=== PATIENT | female | born 2000 | race African-American/Black ===

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

== ENCOUNTER 2019-01-12 21:23 | Emergency (ER) | payer OTHER ==
[2019-01-12 21:39] VITALS: BP 108/50; PULSE 78; TEMP 97.8; BMI 30.9
--- NOTE | 2019-01-12 23:52 | PDOC ---
History of Present Illness - General Chief Complaint: Pain Stated Complaint: lower back pain Time Seen by Provider: 01/12/19 23:41 - History of Present Illness Initial Comments: 01/12/19 23:50 The patient is a 18 year old female with no reported significant PMH who presents to the ED with a 4 day h/o a constellation of complaints including B/L lower quadrant abdominal pain, flank pain and B/L LE swelling. No fevers/ chills. Endorses increased urgency and frequency but denies dysuria/hematuria. NKDA Past History - Past Medical History Allergies/Adverse Reactions: Allergies Allergy/AdvReac Type Severity Reaction Status Date / Time No Known Allergies Allergy Verified 01/12/19 21:36 Home Medications: Ambulatory Orders Amoxicillin - [Amoxicillin 500mg Capsule -] 500 mg PO BID #20 capsule 10/23/18 Cancer: No Cardiac Disorders: No CVA: No COPD: No CHF: No DVT: No GI Disorders: Yes (GERD) Disorders: Yes (ovarian cyst, UTIs (usually doesnt complete abx)) - Surgical History Cholecystectomy: Yes - Immunization History Immunization Up to Date: Yes - Suicide/Smoking/Psychosocial Hx Smoking Status: No Smoking History: Never smoked Have you smoked in the past 12 months: No Number of Cigarettes Smoked Daily: 0 Hx Alcohol Use: No Drug/Substance Use Hx: No Substance Use Type: None Review of Systems - Review of Systems Constitutional: No: Chills, Fever HEENTM: No: Blurred Vision, Recent change in vision Respiratory: No: Cough, Shortness of Breath Cardiac (ROS): No: Chest Pain, Lightheadedness, Palpitations, Syncope ABD/GI: Yes: Abdominal cramping. No: Constipated, Diarrhea, Nausea, Vomiting : Yes: Frequency, Urgency. No: Burning, Dysuria Musculoskeletal: Yes: Back Pain *Physical Exam - Vital Signs Last Vital Signs Temp Pulse Resp BP Pulse Ox 97.8 F 78 18 108/50 L 100 01/12/19 21:37 01/12/19 21:37 01/12/19 21:37 01/12/19 21:37 01/12/19 21:37 - Physical Exam General Appearance: Yes: Nourished, Appropriately Dressed HEENT: positive: Normal Voice, Hearing Grossly Normal Neck: positive: Trachea midline, Supple Respiratory/Chest: positive: Lungs Clear, Normal Breath Sounds Cardiovascular: positive: S1, S2, Edema (mild B/L non-pitting edema) Vascular Pulses: Dorsalis-Pedis (R): 2+, Doralis-Pedis (L): 0 Gastrointestinal/Abdominal: positive: Normal Bowel Sounds, Soft Musculoskeletal: positive: CVA Tenderness (R), CVA Tenderness (L) Extremity: positive: Normal Capillary Refill, Normal Inspection Integumentary: positive: Normal Color, Dry, Warm Neurologic: positive: member of congress II-XII NML intact, Fully Oriented, Alert Medical Decision Making - Medical Decision Making 01/12/19 23:52 18 year old female c/o back pain, abdominal pain and B/L LE swelling. VS unremarkable. PE shows mild non-pitting edema in B/L LE, soft belly, mild B/ L CVA tenderness. Patient states she doesn't wish to stay for evaluation after she is counseled it may take a 2-3 hours for labs, UA, renal ultrasound. Discharged AMA. The patient is clinically sober, free from distracting injury, appears to have intact insight and judgement and in my opinion has the capacity to make decisions. The patient presents with signs and symptoms consistent with possible renal or urinary or cardiac etiology. I have discussed the need for further evaluation of her condition. She has requested discharge and understands she is signing out against medical advice. Patient states she will follow up with primary care and I have counseled patient to return to the Emergency Department for any new/worsening/concerning symptoms. *DC/Admit/Observation/Transfer Diagnosis at time of Disposition: Back pain, Abdominal pain, Localized swelling of both lower legs - Discharge Dispostion Disposition: AGAINST MEDICAL ADVICE Condition at time of disposition: Fair Decision to Admit order: No - Referrals Referrals: Shawn Johnson MD [Primary Care Provider] - - Patient Instructions Printed Discharge Instructions: DI for Low Back Pain, DI for Abdominal Pain- Adult Additional Instructions: You are choosing to leave against medical advice. Follow up with your primary care doctor in the next 2 days. Return to the Emergency Department for full evaluation or any new/worsening/ concerning symptoms. - Post Discharge Activity
--- NOTE | 2019-01-13 02:45 | PDOC ---
Documentation entered by Linda Zendejas SCRIBE, acting as scribe for Lucrecia Nation MD. Lucrecia Nation MD: This documentation has been prepared by the Cristiana eli Daisy, SCRIBE, under my direction and personally reviewed by me in its entirety. I confirm that the documentation accurately reflects all work, treatment, procedures, and medical decision making performed by me. Attending Attestation - Resident Resident Name: Ayala Stewart - ED Attending Attestation I have performed the following: I have examined & evaluated the patient, The case was reviewed & discussed with the resident, I agree w/resident's findings & plan - HPI HPI: 01/12/19 23:59 18 yo female p/w b/l lower extremity edema, abdominal pain and flank pain - Physicial Exam PE: 01/13/19 02:42 wnwd 18 yo female has cluster of complaints head ncat neck supple lungs cta b/l cvs [id number] abd flat,nontender skin warm and tam extremities there is mild b/l edema mild low back pain neuro axox3,ambulatory,no gross focal neuro deficits psych appropriate - Medical Decision Making 01/13/19 02:44 pt refused to stay for imaging studies or lab work and left AMA
== END 2019-01-13 00:01 | disposition left against medical advice (07) ==
LOC: JERFT 21:23 → JER 21:23
DX: R10.32 Left lower quadrant pain (principal); D64.9 Anemia, unspecified
CPT/HCPCS: 99282-25

== ENCOUNTER 2019-01-13 15:24 | Emergency (ER) | payer OTHER ==
--- NOTE | 2019-01-13 15:34 | PDOC ---
Rapid Medical Evaluation Time Seen by Provider: 01/13/19 15:33 Medical Evaluation: Allergies Allergy/AdvReac Type Severity Reaction Status Date / Time No Known Allergies Allergy Verified 01/12/19 21:36 01/13/19 15:36 I have performed a brief in-person evaluation of this patient. The patient presents with a chief complaint of: lower back pain, foot edema Pertinent physical exam findings:stable and in NAD, non-focal I have ordered the following:labs, std screening see yesterdays note. pt left ama yesterday prior to labs, us The patient will proceed to the ED for further evaluation. 01/13/19 15:41
[2019-01-13 15:37] VITALS: BP 119/80; PULSE 78; TEMP 98.5; BMI 30.9
--- NOTE | 2019-01-13 16:55 | PDOC ---
History of Present Illness - General Chief Complaint: Back Pain Stated Complaint: LOWER BACK PAIN, SWELLING OF FEET Time Seen by Provider: 01/13/19 15:33 History Source: Patient - History of Present Illness Timing/Duration: reports: intermittent Abdominal Pain Onset Location: reports: suprapubic Pain Radiation: reports: back Past History - Past Medical History Allergies/Adverse Reactions: Allergies Allergy/AdvReac Type Severity Reaction Status Date / Time No Known Allergies Allergy Verified 01/13/19 15:37 Home Medications: Ambulatory Orders NK [No Known Home Medication] 01/13/19 Cancer: No Cardiac Disorders: No CVA: No COPD: No CHF: No DVT: No GI Disorders: Yes (GERD) Disorders: Yes (ovarian cyst, UTIs (usually doesnt complete abx)) - Surgical History Cholecystectomy: Yes - Immunization History Immunization Up to Date: Yes - Suicide/Smoking/Psychosocial Hx Smoking Status: No Smoking History: Never smoked Have you smoked in the past 12 months: No Number of Cigarettes Smoked Daily: 0 Information on smoking cessation initiated: No Hx Alcohol Use: No Drug/Substance Use Hx: No Substance Use Type: None Review of Systems - Review of Systems Constitutional: No: Chills, Fever ABD/GI: Yes: Constipated. No: Blood Streaked Bowels, Diarrhea, Nausea, Rectal Bleeding, Vomiting, Tarry Stools : No: Burning, Dysuria, Discharge, Hematuria *Physical Exam - Vital Signs Last Vital Signs Temp Pulse Resp BP Pulse Ox 98.5 F 78 17 119/80 100 01/13/19 15:35 01/13/19 15:35 01/13/19 15:35 01/13/19 15:35 01/13/19 15:35 - Physical Exam General Appearance: Yes: Appropriately Dressed. No: Apparent Distress HEENT: positive: Normal Voice Neck: positive: Supple Respiratory/Chest: negative: Respiratory Distress Gastrointestinal/Abdominal: positive: Normal Bowel Sounds, Soft. negative: Tender, Distended, Guarding, Rebound Musculoskeletal: negative: CVA Tenderness Integumentary: positive: Dry, Warm Neurologic: positive: Fully Oriented, Alert, Normal Mood/Affect ED Treatment Course - LABORATORY CBC & Chemistry Diagram: 01/13/19 18:34 01/13/19 17:51 Medical Decision Making - Medical Decision Making 01/13/19 16:39 18 yo F, tx for chlamydia remotely, here for evaluation of abd pain. Patient states for the past week she's been experiencing tingling to left lower abdomen , then sharp pain that comes and goes. No pain currently in ED. Pt denies dyspareunia, dysuria, hematuria, vaginal discharge, change in BM, n/v/f/c. No h/ o cysts or fibroids. No new sexual partners. Of note, pt presented to ED yesterday for symptoms, but left prior to workup because "it was taking too long " per patient See exam Lower abd pain x 1 week Since resolved No associated sxs Stable w/ benign abdomen AMA yesterday prior to w/u -labs/UA/US -anticipate discharge 01/13/19 18:45 US, UA and upreg neg. Pending labs and dispo. Remains pain free at this time. Signed out to LORNA Pan at this time 01/13/19 19:10 01/13/19 22:34 *DC/Admit/Observation/Transfer Diagnosis at time of Disposition: Abdominal pain - Discharge Dispostion Disposition: HOME Condition at time of disposition: Stable - Referrals Referrals: Shawn Johnson MD [Primary Care Provider] - 2 Days - Patient Instructions Printed Discharge Instructions: DI for Abdominal Pain-Adult - Post Discharge Activity
[2019-01-13 17:29] LABS: PH,URINE >= 9.0 (5.0-8.0); URINE APPEARANCE CLEAR; URINE BILIRUBIN NEGATIVE (NEGATIVE); URINE COLOR YELLOW; URINE GLUCOSE (UA) NEGATIVE (NEGATIVE); URINE KETONE NEGATIVE (NEGATIVE); URINE LEUK ESTERASE NEGATIVE (NEGATIVE); URINE NITRITE NEGATIVE (NEGATIVE); URINE PROTEIN NEGATIVE (NEGATIVE)
[2019-01-13 18:35] LABS: ALBUMIN 3.9 g/dl (3.4-5.0); BILIRUBIN,TOTAL 0.5 mg/dL (0.2-1); CALCIUM 8.8 mg/dL (8.5-10.1); CREATININE 0.8 mg/dL (0.55-1.3); POTASSIUM 4.3 mmol/L (3.5-5.1)
[2019-01-13 18:56] LABS: BASO % 0.4 % (0-2.0); EOS % 1.7 % (0-4.5); HEMATOCRIT 30.3 % (32.4-45.2); HEMOGLOBIN 9.5 GM/dL (10.7-15.3); LYMPH % 31.4 % (8-40); MCH 23.8 pg (25.7-33.7); MCHC 31.5 g/dl (32.0-36.0); MEAN CELL VOLUME 75.5 fl (80-96); MEAN PLT VOLUME 8.6 fl (7.5-11.1); MONO % 9.3 % (3.8-10.2); NEUT % 57.2 % (42.8-82.8); PLATELET COUNT 302 K/MM3 (134-434); RBC 4.01 M/mm3 (3.60-5.2); RDW 16.2 % (11.6-15.6); WHITE BLOOD COUNT 6.1 K/mm3 (4.0-10.0)
--- NOTE | 2019-01-13 19:34 | PDOC ---
*Physical Exam - Vital Signs Last Vital Signs Temp Pulse Resp BP Pulse Ox 98.5 F 78 17 119/80 100 01/13/19 15:35 01/13/19 15:35 01/13/19 15:35 01/13/19 15:35 01/13/19 15:35 ED Treatment Course - LABORATORY CBC & Chemistry Diagram: 01/13/19 18:34 01/13/19 17:51 - ADDITIONAL ORDERS Additional order review: Laboratory Results 01/13/19 01/13/19 01/13/19 17:51 17:12 17:12 Sodium 137 Potassium 4.3 Chloride 105 Carbon Dioxide 27 Anion Gap 5 L BUN 11 Creatinine 0.8 Est GFR (CKD-EPI)AfAm 123.87 Est GFR (CKD-EPI)NonAf 106.88 Random Glucose 114 H Calcium 8.8 Total Bilirubin 0.5 AST 16 ALT 23 Alkaline Phosphatase 92 Total Protein 8.0 Albumin 3.9 Urine Color Yellow Urine Appearance Clear Urine pH >= 9.0 H D Ur Specific [place] 1.021 Urine Protein Negative Urine Glucose (UA) Negative Urine Ketones Negative Urine Blood Negative Urine Nitrite Negative Urine Bilirubin Negative Urine Urobilinogen 1.0 Ur Leukocyte Esterase Negative Urine HCG, Qual Negative 01/13/19 18:34 RBC 4.01 MCV 75.5 L MCHC 31.5 L RDW 16.2 H MPV 8.6 Neutrophils % 57.2 D Lymphocytes % 31.4 D Monocytes % 9.3 Eosinophils % 1.7 D Basophils % 0.4 Medical Decision Making - Medical Decision Making Patient signed out to me by LORNA Cowart Patient appears well and is in NAD; denies any pain CBC was pending which came back showing anemia, which patient states she is already she has (Hgb is stable on trending from prior labs) Stable for dc 01/13/19 19:33 *DC/Admit/Observation/Transfer Diagnosis at time of Disposition: Abdominal pain Qualifiers: Abdominal location: left lower quadrant Qualified Code(s): R10.32 - Left lower quadrant pain - Discharge Dispostion Disposition: HOME Condition at time of disposition: Stable Decision to Admit order: No - Referrals Referrals: Shawn Johnson MD [Primary Care Provider] - 2 Days - Patient Instructions Printed Discharge Instructions: DI for Abdominal Pain-Adult - Post Discharge Activity
== END 2019-01-13 20:05 | disposition home or self-care (01) ==
LOC: JER 15:24
DX: R10.32 Left lower quadrant pain (principal); R22.43 Localized swelling, mass and lump, lower limb, bilateral
CPT/HCPCS: 36415; 76830-TC; 76856-TC; 80053; 81003; 84703; 85025; 87086; 87491; 87591; 99282-25

== ENCOUNTER 2019-04-20 00:18 | Emergency (ER) | payer OTHER ==
--- NOTE | 2019-04-20 00:31 | PDOC ---
History of Present Illness - General Stated Complaint: YEAST INFECTION Time Seen by Provider: 04/20/19 00:31 - History of Present Illness Initial Comments: 04/20/19 00:45 19 year old woman with no pmhx who presents with yeast infection after completing a course of cipro for UTI. She reports that she got diflucan this morning at [facility] but still has vaginal itching. She had recent negative STD test. She denies any fever, dysuria, hematuria. She has no other complaints. ROS GENERAL/CONSTITUTIONAL: No fever or chills. No weakness. HEAD, EYES, EARS, NOSE AND THROAT: No change in vision. No ear pain or discharge. No sore throat. CARDIOVASCULAR: No chest pain or shortness of breath RESPIRATORY: No cough, wheezing, or hemoptysis. GASTROINTESTINAL: No nausea, vomiting, diarrhea or constipation. GENITOURINARY: No dysuria, frequency, or change in urination. MUSCULOSKELETAL: No joint or muscle swelling or pain. No neck or back pain. SKIN: No rash NEUROLOGIC: No headache, vertigo, loss of consciousness, or change in strength/ sensation. PE GENERAL: Awake, alert, and fully oriented, in no acute distress HEAD: No signs of trauma, normocephalic, atraumatic EYES: EOMI, sclera anicteric, conjunctiva clear ENT: oropharynx clear without exudates. Moist mucosa NECK: Normal ROM, supple LUNGS: No distress, speaks full sentences, clear to auscultation bilaterally HEART: Regular rate and rhythm, normal S1 and S2, no murmurs, rubs or gallops, peripheral pulses normal and equal bilaterally. ABDOMEN: Soft, nontender, normoactive bowel sounds. No guarding, no rebound. No masses EXTREMITIES : Normal inspection, Normal range of motion, no edema. No clubbing or cyanosis. NEUROLOGICAL: Cranial nerves II through XII grossly intact. Normal speech, normal gait, no focal sensorimotor deficits SKIN: Warm, Dry, normal turgor, no rashes or lesions noted MDM 19 year old woman with no pmhx who presents with yeast infection after completing a course of cipro for UTI. DDX including but not limited to: yeast infection ED Course: Patient education provided will give topical clotrimazole otherwise advise to chicken picker OTC. Melanie Smith, PGY2 Emergency Medicine Past History - Past Medical History Allergies/Adverse Reactions: Allergies Allergy/AdvReac Type Severity Reaction Status Date / Time No Known Allergies Allergy Verified 04/20/19 01:09 Home Medications: Ambulatory Orders NK [No Known Home Medication] 01/13/19 Cancer: No Cardiac Disorders: No CVA: No COPD: No CHF: No DVT: No GI Disorders: Yes (GERD) Disorders: Yes (ovarian cyst, UTIs (usually doesnt complete abx)) - Surgical History Cholecystectomy: Yes - Immunization History Immunization Up to Date: Yes - Suicide/Smoking/Psychosocial Hx Smoking Status: No Smoking History: Never smoked Have you smoked in the past 12 months: No Number of Cigarettes Smoked Daily: 0 Hx Alcohol Use: No Drug/Substance Use Hx: No Substance Use Type: None *DC/Admit/Observation/Transfer Diagnosis at time of Disposition: Yeast infection - Discharge Dispostion Disposition: HOME Condition at time of disposition: Stable Decision to Admit order: No - Referrals - Patient Instructions Printed Discharge Instructions: DI for Vaginal Yeast Infection Additional Instructions: You were seen in the ED for yeast infection. You already have taken Diflucan. supervisor lamp shades over the counter clotrimazole cream. Please return to the ED if you experience any fevers, skin abscess or swelling, burning with urination or blood in the urine. - Post Discharge Activity
[2019-04-20] MEDS ORDERED: FLUCONAZOLE 100 MG TABLET (UD) PO ONE (00:33)
[2019-04-20] MEDS ORDERED: CLOTRIMAZOLE 1% CREAM 15 GM TUBE TP SCH (01:00)
[2019-04-20 01:18] VITALS: TEMP 98.4; BMI 32.2
--- NOTE | 2019-04-20 01:38 | PDOC ---
Attending Attestation - Resident Resident Name: Melanie Smith - ED Attending Attestation I have performed the following: I have examined & evaluated the patient, The case was reviewed & discussed with the resident, I agree w/resident's findings & plan - HPI HPI: 04/20/19 06:36 Pt comes with a yeast infection. - Physicial Exam PE: 04/20/19 06:36 Agree with resident exam - Medical Decision Making 04/20/19 06:36 Home with a dose of diflucan. Pt advised to follow with INSURANCE AGENT
[2019-04-20 03:02] VITALS: BP 127/69; PULSE 74
== END 2019-04-20 01:30 | disposition home or self-care (01) ==
LOC: JER 00:18
DX: B37.3 Candidiasis of vulva and vagina (principal)
CPT/HCPCS: 99282-25

== ENCOUNTER 2019-04-27 15:01 | Emergency (ER) | payer OTHER ==
--- NOTE | 2019-04-27 15:05 | PDOC ---
Rapid Medical Evaluation Time Seen by Provider: 04/27/19 15:03 Medical Evaluation: Allergies Allergy/AdvReac Type Severity Reaction Status Date / Time No Known Allergies Allergy Verified 04/20/19 01:09 04/27/19 15:03 HPI: No concern for STD but has vaginal itching after [place] wax 2 weeks ago PE: deferred no gross deficits ORDERS: Nothing Discharge Disposition - Diagnosis Itching in the vaginal area - Discharge Dispostion Condition at time of disposition: Stable - Referrals - Patient Instructions - Post Discharge Activity
[2019-04-27 15:07] VITALS: BP 116/69; PULSE 93; TEMP 98.6; BMI 32.4
--- NOTE | 2019-04-27 15:39 | PDOC ---
History of Present Illness - General Chief Complaint: Vaginal Sxs Stated Complaint: VAGINAL ITCHING Time Seen by Provider: 04/27/19 15:03 History Source: Patient - History of Present Illness Initial Comments: 04/27/19 15:49 Chief complaint: Vaginal itching Patient is a healthy 19-year-old female that episode he and wax done to her vaginal area about 2-3 weeks ago, she was burn to the area,. Patient previously had UTI and yeast infection, was on Diflucan because she gets yeast infections when she takes antibiotics. Patient states that she was seen here 3 days ago, given clometrazole and which is not helping. Patient has no fever, patient was recently screened for STDs, 3 weeks ago by her ARMORED TRUCK DRIVER. She has not had sex since. Patient states that the area is getting better but it is still very itchy and irritated GENERAL/CONSTITUTIONAL: No fever, weakness. dizziness HEAD, EYES, EARS, NOSE AND THROAT: No change in vision. No ear pain or discharge. No sore throat. CARDIOVASCULAR: No chest pain RESPIRATORY: No shortness of breath or cough GASTROINTESTINAL: No pain, nausea, vomiting, diarrhea or constipation GENITOURINARY: No dysuria MUSCULOSKELETAL: No neck or back pain SKIN: + Irritated vaginal area NEUROLOGIC: No headache, vertigo, loss of consciousness, or loss of sensation. GENERAL: The patient is awake, alert, and fully oriented, in no acute distress. HEAD: Normal with no signs of trauma. EYES: Pupils equal, round and reactive to light, sclera anicteric, conjunctiva clear. ENT: pharynx: no erythema, no exudate, uvula midline NECK: supple CHEST: clear, nontender, rr ABD: soft, nontender Genitals: External exam with small skin bumps, noninfected, mild erythema, irritation, no signs of cellulitis or infection. Pelvic: Small amount of white discharge, no tenderness BACK: no tenderness or signs of injury EXTREMITIES: Normal range of motion, no edema. NEUROLOGICAL: Normal speech, normal gait. SKIN: Warm, Dry Past History - Past Medical History Allergies/Adverse Reactions: Allergies Allergy/AdvReac Type Severity Reaction Status Date / Time No Known Allergies Allergy Verified 04/20/19 01:09 Home Medications: Ambulatory Orders Fluconazole [Diflucan] 150 mg PO ONCE #1 tablet 04/27/19 Cancer: No Cardiac Disorders: No CVA: No COPD: No CHF: No DVT: No GI Disorders: Yes (GERD) Disorders: Yes (ovarian cyst, UTIs (usually doesnt complete abx)) - Surgical History Cholecystectomy: Yes - Immunization History Immunization Up to Date: Yes - Suicide/Smoking/Psychosocial Hx Smoking Status: No Smoking History: Never smoked Have you smoked in the past 12 months: No Number of Cigarettes Smoked Daily: 0 Hx Alcohol Use: No Drug/Substance Use Hx: No Substance Use Type: None *Physical Exam - Vital Signs Last Vital Signs Temp Pulse Resp BP Pulse Ox 98.6 F 93 H 18 116/69 99 04/27/19 15:05 04/27/19 15:05 04/27/19 15:05 04/27/19 15:05 04/27/19 15:05 Medical Decision Making - Medical Decision Making 04/27/19 15:54 Healthy 19-year-old female who after having Ethiopian wax done several weeks ago feels the area was burned, and developed itching. She states it is better than it was before but continues to be swollen and irritated and itchy. Patient prone to yeast infections and found to have some white discharge, will give Diflucan. There is no signs of cellulitis/infection. Patient has not been sexually active in the last few weeks, and was just prior checked by her OB/ IP TECHNOLOGY TRANSACTIONS ATTORNEY. Patient was instructed to take cool baths, apply bacitracin and over-the- counter cortisone. She was also instructed she can take Benadryl for the itching especially at bedtime. She will follow-up with her ARMORED TRUCK DRIVER this week it was further recommended to her that she should probably not get this procedure done in the future Discussed issues, findings, results, applicable medications and treatments and follow-up. All these were understood and all questions were answered *DC/Admit/Observation/Transfer Diagnosis at time of Disposition: Itching in the vaginal area - Discharge Dispostion Disposition: HOME Condition at time of disposition: Stable - Prescriptions Prescriptions: Fluconazole [Diflucan] 150 mg PO ONCE #1 tablet - Referrals - Patient Instructions Additional Instructions: Area clean and dry, do not use any kind of perfumes or ointments or creams, Apply the bacitracin and a cortisone 2-3 times daily after cool soaks, wear loose cotton underwear. Take the Diflucan, follow-up with your distribution designer, call tomorrow also take Benadryl for the itching, especially at nighttime to sleep Return to the ER if fever or feeling sicker - Post Discharge Activity
== END 2019-04-27 15:39 | disposition home or self-care (01) ==
LOC: JERFT 15:01
DX: L29.2 Pruritus vulvae (principal)
CPT/HCPCS: 99282-25

== ENCOUNTER 2019-05-01 21:44 | Emergency (ER) | payer OTHER ==
--- NOTE | 2019-05-01 21:53 | PDOC ---
Rapid Medical Evaluation Time Seen by Provider: 05/01/19 21:50 Medical Evaluation: Allergies Allergy/AdvReac Type Severity Reaction Status Date / Time No Known Allergies Allergy Verified 04/20/19 01:09 05/01/19 21:51 I have performed a brief in-person evaluation of this patient. The patient presents with a chief complaint of: ROSS w/ back and abd pain. H/o anemia, told hgb 8, 2 weeks ago, non-compliant w/ iron. No blood transfusion in past. Denies weakness/dizziness/sob/syncope Pertinent physical exam findings: Tachy to 118 w/ T of 101.8, in NAD I have ordered the following:labs The patient will proceed to the ED for further evaluation. Discharge Disposition - Diagnosis Headache Qualifiers: Headache type: unspecified Headache chronicity pattern: acute headache Intractability: not intractable Qualified Code(s): R51 - Headache Abdominal pain Qualifiers: Abdominal location: lower abdomen, unspecified Qualified Code(s): R10.30 - Lower abdominal pain, unspecified Back pain Qualifiers: Back pain location: low back pain Chronicity: acute Back pain laterality: bilateral Sciatica presence: without sciatica Qualified Code(s): M54.5 - Low back pain - Referrals - Patient Instructions - Post Discharge Activity
[2019-05-01 22:06] VITALS: BMI 30.9
[2019-05-01] MEDS ORDERED: METOCLOPRAMIDE HCL INJECTION 10 MG/2 ML VIAL IVPUSH ONE (23:31)
[2019-05-01] MEDS ORDERED: SODIUM CHLORIDE 1,000 ML IV STA (23:32)
[2019-05-01] MEDS ORDERED: ACETAMINOPHEN 1000 MG/100 ML VIAL (NON FORMULARY) IVPB ONE (23:32)
[2019-05-01] MEDS ORDERED: METOCLOPRAMIDE HCL INJECTION 10 MG/2 ML VIAL ONE (23:58)
[2019-05-01] MEDS ORDERED: ACETAMINOPHEN INJECTION 100 ML IVPB ONE (23:58)
--- NOTE | 2019-05-02 00:35 | PDOC ---
History of Present Illness - General Chief Complaint: Headache Stated Complaint: BODY PAIN & HEADACHE Time Seen by Provider: 05/01/19 21:50 - History of Present Illness Initial Comments: 05/02/19 00:29 Tino Daniels is a 19F [employer] (no blood products) with PMH anemia presenting with 3 weeks headache, 1 day of fever, and lower back pain. Patient reports a headache for the last 3 weeks, top and back of head, on and off, a sharp sensation, no changes to vision, no known triggers, at all times of day, sometimes wakes up with them. Has tried ibuprofen 800mg with limited relief. History of anemia of unknown origin, supposed to take iron supplements but has not been compliant, PCP [facility], Hgb 8, referred to transfusion center given JW status but unable to get an appointment. Denies chest pain, SOB, numbness/tingling, dizziness, weakness. Denies bloody vomit/ stools, denies heavy periods. Last sexual activity 2 months ago, unprotected, denies discharge. Also has some nonspecific lower back pain, non-spinal, has history of UTI, recently finished a course of cipro, has history of yeast infection after Abx, already on diflucan for discharge. Denies C/D. Nonspecific abdominal upset as well, bilateral lower quadrants. Fever and chills starting today, has family at home who all present with fever and myalgias. 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 Past History - Past Medical History Allergies/Adverse Reactions: Allergies Allergy/AdvReac Type Severity Reaction Status Date / Time No Known Allergies Allergy Verified 05/01/19 21:52 Home Medications: Ambulatory Orders NK [No Known Home Medication] 05/02/19 Anemia: Yes (IRON DEF) Cancer: No Cardiac Disorders: No CVA: No COPD: No CHF: No DVT: No GI Disorders: Yes (GERD) Disorders: Yes (ovarian cyst, UTIs (usually doesnt complete abx)) - Surgical History Cholecystectomy: Yes - Immunization History Immunization Up to Date: Yes - Suicide/Smoking/Psychosocial Hx Smoking Status: No Smoking History: Never smoked Have you smoked in the past 12 months: No Number of Cigarettes Smoked Daily: 0 Information on smoking cessation initiated: No Hx Alcohol Use: No Drug/Substance Use Hx: No Substance Use Type: None Review of Systems - Review of Systems Constitutional: Yes: Chills, Fever, Loss of Appetite, Malaise HEENTM: No: Eye Pain, Blurred Vision, Recent change in vision, Hearing Loss, Throat Swelling, Difficulty Swallowing Respiratory: No: Cough, Shortness of Breath Cardiac (ROS): No: Chest Pain, Irregular Heart Rate, Palpitations, Syncope ABD/GI: No: Constipated, Diarrhea, Nausea, Vomiting, Abdominal cramping : Yes: Discharge (white discharge). No: Burning, Dysuria Musculoskeletal: Yes: Back Pain (lower back pain, not on spine). No: Muscle Pain, Muscle Weakness Neurological: Yes: See HPI, Headache (3 weeks). No: Numbness, Paresthesia, Weakness Endocrine: No: Symptoms Reported Hematologic/Lymphatic: Yes: See HPI, Anemia All Other Systems: Reviewed and Negative *Physical Exam - Vital Signs Last Vital Signs Temp Pulse Resp BP Pulse Ox 101.8 F H 118 H 16 139/88 100 05/01/19 21:52 05/01/19 21:52 05/01/19 21:52 05/01/19 21:52 05/01/19 21:52 - Physical Exam General Appearance: Yes: Nourished, Appropriately Dressed, Obese. No: Apparent Distress HEENT: positive: EOMI, JALIL, Normal ENT Inspection, Normal Voice, Pharynx Normal , Scleral Icterus (R), Hearing Grossly Normal (negative Kernig's and Brudzinski' s sign, full ROM at the neck with no tenderness to palpation), Other. negative : Photophobia, Scleral Icterus (L), Pharyngeal Erythema, Tonsillar Exudate, Tonsillar Erythema, Nasal Congestion Respiratory/Chest: positive: Lungs Clear, Normal Breath Sounds. negative: Chest Tender, Respiratory Distress, Crackles, Rales, Rhonchi Cardiovascular: positive: Regular Rhythm, Regular Rate. negative: Murmur Female Pelvic Exam: positive: normal external exam, cervical os closed, normal adnexa, normal size ovaries, discharge (white liquid discharge consistent with yeas infection). negative: CMT, lesions, adnexal tenderness, vaginal bleeding Gastrointestinal/Abdominal: positive: Normal Bowel Sounds, Tender (BLQ), Soft, Protuberent. negative: Organomegaly, Guarding, Rebound Musculoskeletal: positive: Normal Inspection, Other (paraspinal tenderness). negative: CVA Tenderness Extremity: positive: Normal Capillary Refill, Normal Inspection, Normal Range of Motion. negative: Tender Integumentary: positive: Normal Color, Dry, Warm Neurologic: positive: Fully Oriented, Alert, Normal Mood/Affect, Normal Response , Motor Strength 5/5. negative: Facial Droop, Numbness, Sensory Deficit, Confused, Disoriented ED Treatment Course - LABORATORY CBC & Chemistry Diagram: 05/02/19 00:05 05/02/19 00:05 Medical Decision Making - Medical Decision Making 05/02/19 00:29 Tino Daniels is a 19F [employer] (no blood products) with PMH anemia presenting with 3 weeks headache, 1 day of fever, and lower back pain. Fever and headache concerning for meningitis, but ROSS for 3 weeks with sudden fever today, as well as no meningeal signs, photophobia, full ROM at neck, no Kernig/Brudzinski sign makes meningitis less likely. Will evaluate via: CMP CBC CP BC ECG UA/UC Will treat ROSS with reglan, 1L NS, and Ofirmev. Concern high for STD/PIF given lower back pain and abd pain, will perform pelvic exam. 05/02/19 03:54 Pelvic exam shows no CMT, no vaginal bleeding, normal os, with white discharge consistent with yeast infection. Obtained urine sample and GC culture from cervix. If urine normal, will send home with Neurology f/u for headache and advice to take iron. *DC/Admit/Observation/Transfer Diagnosis at time of Disposition: Yeast infection Headache Qualifiers: Headache type: unspecified Headache chronicity pattern: acute headache Intractability: not intractable Qualified Code(s): R51 - Headache Abdominal pain Qualifiers: Abdominal location: lower abdomen, unspecified Qualified Code(s): R10.30 - Lower abdominal pain, unspecified Back pain Qualifiers: Back pain location: low back pain Chronicity: acute Back pain laterality: bilateral Sciatica presence: without sciatica Qualified Code(s): M54.5 - Low back pain - Referrals Schedule a call back: Please call patient about results. Referrals: Shawn Gill [Primary Care Provider] - Felix Jett MD [Staff Physician] - - Patient Instructions Printed Discharge Instructions: DI for Vaginal Yeast Infection, DI for Iron Deficiency Anemia-Adult, DI for Headache Additional Instructions: Today you were evaluated for a headache as well as belly pain, back pain, and fever. You checked your labs and you do not have any signs of an infection, electrolyte abnormalities, or dehydration. Your hemoglobin is 9, and is improved from when you saw your primary doctor. We were initially concerned about a disease called meningitis, but we do not believe you have this at this time. Your headache is likely cause by your anemia; please remember to take your iron as prescribed to help with your anemia and follow-up with the transfusion center. However, we have included a referral to a neurologist Dr. Jett to further evaluate your headaches. You may need a lumbar puncture to evaluate for increased intracranial pressure that could be the cause of your headache, which if is untreated, may progress and cause blindness. Because you also had lower back pain and fever, we performed a pelvic exam and also tested you for infections. We do not see any signs of a urinary tract infection or cervical infection that need antibiotics. Please continue to take the diflucan you were prescribed for the yeast infection from your OBGYN. The fever is likely from a viral infection that is present at home, please take ibuprofen every 6 hours as listed on the bottle for fevers as well as drinking a lot of fluids such as soups. Please follow-up with your primary doctor in the next few days for further care. If you experience worsening headaches above what you currently feel, have numbness, tingling, bloody vomiting or diarrhea, chest pain, shortness of breath , changes to your vision, or any other new or concerning symptoms, please return to the closest emergency room. You should be receiving a call back in the next few days for the results of the other tests we performed, including STD and Lyme disease. - Post Discharge Activity
[2019-05-02 00:46] LABS: BASO % 0.2 % (0-2.0); EOS % 0.3 % (0-4.5); HEMATOCRIT 29.2 % (32.4-45.2); HEMOGLOBIN 9.2 GM/dL (10.7-15.3); LYMPH % 5.3 % (8-40); MCHC 31.6 g/dl (32.0-36.0); MEAN CELL VOLUME 76.1 fl (80-96); MEAN PLT VOLUME 8.8 fl (7.5-11.1); MONO % 13.6 % (3.8-10.2); NEUT % 80.6 % (42.8-82.8); PLATELET COUNT 286 K/MM3 (134-434); RBC 3.83 M/mm3 (3.60-5.2); RDW 16.3 % (11.6-15.6); WHITE BLOOD COUNT 6.4 K/mm3 (4.0-10.0)
--- NOTE | 2019-05-02 00:57 | PDOC ---
Attending Attestation - Resident Resident Name: Stephan Turner - ED Attending Attestation I have performed the following: I have examined & evaluated the patient, The case was reviewed & discussed with the resident, I agree w/resident's findings & plan - HPI HPI: 05/02/19 00:48 19y/o F h/o anemia of unclear etiology maintained on iron as [facility] presents now with headache for 2 weeks. Pt reports gradual onset of intermittent mild headaches daily for the last 2 weeks , parietal and not associated with vision/speech change, focal weakness, n/v. pt was taking ibuprofen with relief but ROSS would return, no injury. no h/o recurring headaches , but has family members with migraines. over past 24h, developed chills without infectious source. no URI/cough/v/d/ dysuria/rash/body ache. 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 has one-time h/o treated chlamydia. - Physicial Exam PE: 05/02/19 00:59 fever, tachy, normal O2 sat alert, nad, well appearing seated with eyes closed, smiling and conversant perrl, eomi. op clear, no exudate. no LAD. neck supple without meningismus s1s2 rrr, ctab, abd benign with suprapubic discomfort no cvat no rash, no arthropathy pelvic per resident neuro exam completely normal - Medical Decision Making 05/02/19 01:02 19y/o F with intermittent headache for 2 weeks without red flags on history/PE, consistent with primary type headache. now also with fever and low abd/back pain , likely unrelated to her headache complaint. presentation is not consistent with meningitis, her neuro exam is normal. ? inflammatory/infectious process: viral, lyme, rheum? seen by PCP as outpt and testing reportedly normal. check labs, ua, pelvic cultures -- consider empiric treatment for PID given only new sx since fever is low abd/back pain iv tylenol, reglan, fluids no indication for emergent imaging, but will refer to neuro for possible MRI reassess 05/02/19 02:01 no leukocytosis, chem wnl. baseline anemia, 9.2. ua/urine preg/pelvic cultures pending pt walking comfortably about ED, headache improved reassess. signout out to overnight physician to f/u results, reassess patient, and disposition accordingly. Heart Score/ECG Review #1 ECG reviewed & interpreted by me at: 23:52 General ECG Interpretation: Sinus Rhythm, Normal Rate (94), Normal Intervals ( qtc 417), No acute ischemic changes
[2019-05-02 01:06] LABS: ALBUMIN 3.9 g/dl (3.4-5.0); BILIRUBIN,TOTAL 0.4 mg/dL (0.2-1); CALCIUM 8.8 mg/dL (8.5-10.1); CREATININE 0.8 mg/dL (0.55-1.3); POTASSIUM 3.6 mmol/L (3.5-5.1); TOT PROT 7.9 g/dl (6.4-8.2)
[2019-05-02 01:16] LABS: INR 1.2 (0.83-1.09); PROTHROMBIN TIME (PATIENT) 14.2 SEC (9.7-13.0)
--- NOTE | 2019-05-02 04:22 | PDOC ---
*Physical Exam - Vital Signs Last Vital Signs Temp Pulse Resp BP Pulse Ox 100.6 F H 87 19 120/51 L 99 05/01/19 23:05 05/01/19 23:05 05/01/19 23:05 05/01/19 23:05 05/01/19 23:05 ED Treatment Course - LABORATORY CBC & Chemistry Diagram: 05/02/19 00:05 05/02/19 00:05 - ADDITIONAL ORDERS Additional order review: Laboratory Results 05/02/19 05/02/19 05/02/19 02:25 00:05 00:05 PT with INR 14.20 H INR 1.20 H Sodium 140 Potassium 3.6 Chloride 104 Carbon Dioxide 26 Anion Gap 10 BUN 13.0 Creatinine 0.8 Est GFR (CKD-EPI)AfAm 123.01 Est GFR (CKD-EPI)NonAf 106.13 Random Glucose 98 Calcium 8.8 Total Bilirubin 0.4 AST 22 ALT 21 Alkaline Phosphatase 92 Total Protein 7.9 Albumin 3.9 Urine HCG, Qual Negative 05/02/19 00:05 RBC 3.83 MCV 76.1 L MCHC 31.6 L RDW 16.3 H MPV 8.8 Neutrophils % 80.6 D Lymphocytes % 5.3 L D Monocytes % 13.6 H Eosinophils % 0.3 D Basophils % 0.2 - Medications Given in the ED: ED Medications Discontinued Medications Generic Name Dose Route Start Last Admin Trade Name Freq PRN Reason Stop Dose Admin Acetaminophen 1,000 mg 05/01/19 23:32 05/02/19 00:29 Ofirmev Injection - IVPB 05/01/19 23:33 1,000 mg ONCE ONE Administration Sodium Chloride 1,000 mls @ 1,000 mls/hr 05/01/19 23:32 05/02/19 00:29 Normal Saline - IV 05/02/19 00:31 1,000 mls/hr ASDIR STA Administration Metoclopramide HCl 10 mg 05/01/19 23:31 05/02/19 00:29 Reglan Injection - IVPUSH 05/01/19 23:32 10 mg ONCE ONE Administration Medical Decision Making - Medical Decision Making 05/02/19 04:21 Pt came with fever and signed out to ct at 2am. We are awaiting UA. 05/02/19 05:51 UA normal; pt will be sent home as a viral syndrome and she is stable to go home. SHe was advised to follow with neuro as an outpatient. Pt is refusing head CT scan and LP to r/o pseudotumor cerebri. *DC/Admit/Observation/Transfer Diagnosis at time of Disposition: Yeast infection Headache Qualifiers: Headache type: unspecified Headache chronicity pattern: acute headache Intractability: not intractable Qualified Code(s): R51 - Headache Abdominal pain Qualifiers: Abdominal location: lower abdomen, unspecified Qualified Code(s): R10.30 - Lower abdominal pain, unspecified Back pain Qualifiers: Back pain location: low back pain Chronicity: acute Back pain laterality: bilateral Sciatica presence: without sciatica Qualified Code(s): M54.5 - Low back pain - Referrals Schedule a call back: Please call patient about results. Referrals: Felix Jett MD [Staff Physician] - Shawn Gill [Primary Care Provider] - - Patient Instructions Printed Discharge Instructions: DI for Vaginal Yeast Infection, DI for Iron Deficiency Anemia-Adult, DI for Headache Additional Instructions: Today you were evaluated for a headache as well as belly pain, back pain, and fever. You checked your labs and you do not have any signs of an infection, electrolyte abnormalities, or dehydration. Your hemoglobin is 9, and is improved from when you saw your primary doctor. We were initially concerned about a disease called meningitis, but we do not believe you have this at this time. Your headache is likely cause by your anemia; please remember to take your iron as prescribed to help with your anemia and follow-up with the transfusion center. However, we have included a referral to a neurologist Dr. Jett to further evaluate your headaches. You may need a lumbar puncture to evaluate for increased intracranial pressure that could be the cause of your headache, which if is untreated, may progress and cause blindness. Because you also had lower back pain and fever, we performed a pelvic exam and also tested you for infections. We do not see any signs of a urinary tract infection or cervical infection that need antibiotics. Please continue to take the diflucan you were prescribed for the yeast infection from your OBGYN. The fever is likely from a viral infection that is present at home, please take ibuprofen every 6 hours as listed on the bottle for fevers as well as drinking a lot of fluids such as soups. Please follow-up with your primary doctor in the next few days for further care. If you experience worsening headaches above what you currently feel, have numbness, tingling, bloody vomiting or diarrhea, chest pain, shortness of breath , changes to your vision, or any other new or concerning symptoms, please return to the closest emergency room. You should be receiving a call back in the next few days for the results of the other tests we performed, including STD and Lyme disease. - Post Discharge Activity
[2019-05-02 04:34] LABS: URINE APPEARANCE Clear; URINE BILIRUBIN Negative (NEGATIVE); URINE COLOR Yellow; URINE GLUCOSE (UA) Negative (NEGATIVE); URINE KETONE Trace (NEGATIVE); URINE LEUK ESTERASE Negative (NEGATIVE); URINE NITRITE Negative (NEGATIVE); URINE PROTEIN 1+ (NEGATIVE); URINE UROBILINOGEN 0.2 mg/dL (0.2-1.0)
[2019-05-02 04:58] LABS: EPI CELLS MANY /HPF (0-5/HPF); HYALINE CASTS NONE SEEN /lpf (0-8); URINE RBC 0.9 /hpf (0-4); URINE WBC 2.4 /hpf (0-5)
[2019-05-02 06:23] VITALS: BP 119/52; PULSE 75; TEMP 98.1
--- NOTE | 2019-05-03 17:01 | EKG ---
Test Reason : Blood Pressure : / mmHG Vent. Rate : 094 BPM Atrial Rate : 094 BPM P-R Int : 150 ms QRS Dur : 064 ms QT Int : 334 ms P-R-T Axes : 050 046 034 degrees QTc Int : 417 ms NORMAL SINUS RHYTHM POSSIBLE LEFT ATRIAL ENLARGEMENT BORDERLINE ECG NO PREVIOUS ECGS AVAILABLE Confirmed by PARIS PEDROZA MD ([id number]) on 05/03/2019 5:00:34 PM Referred By: Confirmed By:PARIS PEDROZA MD
== END 2019-05-02 05:50 | disposition home or self-care (01) ==
LOC: JER 21:44
PROC: 3E033NZ Introduction of Analgesics, Hypnotics, Sedatives into Peripheral Vein, Percutaneous Approach (ICD-10-PCS; principal; 2019-05-01)
PROC: 3E033GC Introduction of Other Therapeutic Substance into Peripheral Vein, Percutaneous Approach (ICD-10-PCS; 2019-05-01)
PROC: 3E0337Z Introduction of Electrolytic and Water Balance Substance into Peripheral Vein, Percutaneous Approach (ICD-10-PCS; 2019-05-01)
DX: R50.9 Fever, unspecified (principal); M54.5 Low back pain; B37.9 Candidiasis, unspecified; R10.30 Lower abdominal pain, unspecified
CPT/HCPCS: 36415; 71046-TC-FY; 80053; 81003; 84703; 85025; 85610; 86618; 86850; 86900; 86901; 87040; 87086; 87186; 87491; 87591; 93005; 93010; 99285-25; J0131; J7030

== ENCOUNTER 2019-05-23 20:24 | Emergency (ER) | payer OTHER ==
[2019-05-23 20:38] VITALS: BMI 31.8
[2019-05-23] MEDS ORDERED: SODIUM CHLORIDE 0.9% 500 ML INFUS.BAG IV ONE (21:23)
[2019-05-23] MEDS ORDERED: METOCLOPRAMIDE HCL INJECTION 10 MG/2 ML VIAL IVPUSH ONE (21:23)
[2019-05-23] MEDS ORDERED: ACETAMINOPHEN 1000 MG/100 ML VIAL (NON FORMULARY) IVPB ONE (21:23)
[2019-05-23] MEDS ORDERED: METOCLOPRAMIDE HCL INJECTION 10 MG/2 ML VIAL ONE (21:37)
[2019-05-23] MEDS ORDERED: ACETAMINOPHEN INJECTION 100 ML IVPB ONE (21:37)
[2019-05-23 21:41] LABS: BASO % 0.6 % (0-2.0); EOS % 0.2 % (0-4.5); HEMATOCRIT 27.9 % (32.4-45.2); LYMPH % 6.3 % (8-40); MCH 24.9 pg (25.7-33.7); MCHC 32.3 g/dl (32.0-36.0); MEAN CELL VOLUME 77.2 fl (80-96); MEAN PLT VOLUME 8.1 fl (7.5-11.1); MONO % 6.7 % (3.8-10.2); NEUT % 86.2 % (42.8-82.8); PLATELET COUNT 290 K/MM3 (134-434); RBC 3.61 M/mm3 (3.60-5.2); RDW 17.8 % (11.6-15.6); WHITE BLOOD COUNT 9.4 K/mm3 (4.0-10.0)
--- NOTE | 2019-05-23 22:03 | PDOC ---
History of Present Illness - General Chief Complaint: Headache Stated Complaint: PAIN & FEVER Time Seen by Provider: 05/23/19 21:14 History Source: Patient Exam Limitations: No Limitations - History of Present Illness Initial Comments: 05/23/19 21:53 Patient is a 19 year old female with past medical history of UTI, anemia, here with complaints of body ache, fever, generalized headache. Patient states she started having generalized body ache yesterday, then fever, sore throat, nausea , headache and neck pain started today. 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 Also states she was exposed to viral meningitis recently. States her dad is a nurse and had viral meningitis which was contracted by 3 other members of his household. Patient states she has had the meningitis vaccine, no flu shot. States had motrin about 8:15 pm. PMD: Dr. Mckeon PMHX: as above PSOCHX: neg cig, drugs, etoh ALL: NKDA GENERAL/CONSTITUTIONAL: No fever or chills. No weakness. No weight change. HEAD, EYES, EARS, NOSE AND THROAT: No change in vision. No ear pain or discharge. No sore throat. CARDIOVASCULAR: No chest pain or shortness of breath. RESPIRATORY: No cough, wheezing, or hemoptysis. GASTROINTESTINAL: No nausea, vomiting, diarrhea or constipation. No rectal bleeding. GENITOURINARY: No dysuria, frequency, or change in urination. MUSCULOSKELETAL: (+) joint or muscle swelling or pain. No neck or back pain. SKIN AND BREASTS: No rash or easy bruising. NEUROLOGIC: No headache, vertigo, loss of consciousness, or loss of sensation. PSYCHIATRIC: No depression or anxiety. ENDOCRINE: No increased thirst. No abnormal weight change. HEMATOLOGIC/LYMPHATIC: No anemia, easy bleeding, or history of blood clots. ALLERGIC/IMMUNOLOGIC: No hives or skin allergy. No latex allergy. GENERAL: The patient is awake, alert, and fully oriented, in no acute distress. HEAD: Normal with no signs of trauma. EYES: Pupils equal, round and reactive to light, extraocular movements intact, sclera anicteric, conjunctiva clear. ENT: Ears normal, nares patent, oropharynx clear without exudates, mild erythema. Moist mucous membranes. NECK: Normal range of motion, supple without lymphadenopathy, JVD, or masses. LUNGS: Breath sounds equal, clear to auscultation bilaterally. No wheezes, and no crackles. HEART: Tachycardiac rate and rhythm, S1 and S2 without murmur, rub. ABDOMEN: Soft, nontender, normoactive bowel sounds. No guarding, no rebound. No masses. EXTREMITIES: Normal range of motion, no edema. No clubbing or cyanosis. No cords, erythema, or tenderness. NEUROLOGICAL: Cranial nerves II through XII grossly intact. Normal speech, normal gait, no meningeal signs. PSYCH: Normal mood, normal affect. SKIN: Warm, Dry, normal turgor, no rashes or lesions noted. Past History - Past History Allergies/Adverse Reactions: Allergies No Known Allergies Allergy (Verified 05/01/19 21:52) Home Medications: Ambulatory Orders Sulfamethoxazole/Trimethoprim [Bactrim Ds Tablet] 1 each PO BID #14 tablet 05/12 Immunization Status Up to Date: Yes Tetanus Status: Less than 5 years - Social History Smoking History: No Smoking Status: Never smoked Number of Cigarettes Smoked Per Day: 0 Drug Use: none *Physical Exam - Vital Signs Last Vital Signs Temp Pulse Resp BP Pulse Ox 102.7 F H 113 H 19 134/83 100 05/23/19 20:35 05/23/19 20:35 05/23/19 20:35 05/23/19 20:35 05/23/19 20:35 ED Treatment Course - LABORATORY CBC & Chemistry Diagram: 05/23/19 21:30 05/23/19 22:45 - ADDITIONAL ORDERS Additional order review: 05/23/19 21:30 RBC 3.61 MCV 77.2 L MCHC 32.3 RDW 17.8 H MPV 8.1 Neutrophils % 86.2 H Lymphocytes % 6.3 L Monocytes % 6.7 Eosinophils % 0.2 Basophils % 0.6 - RADIOLOGY Radiology Studies Ordered: Category Date Time Status HEAD CT WITHOUT CONTRAST [CT] Stat CT Scan 05/23/19 21:48 Ordered - Medications Given in the ED: ED Medications Discontinued Medications Generic Name Dose Route Start Last Admin Trade Name Freq PRN Reason Stop Dose Admin Acetaminophen 1,000 mg 05/23/19 21:23 05/23/19 21:42 Ofirmev Injection - IVPB 05/23/19 21:24 1,000 mg ONCE ONE Administration Metoclopramide HCl 10 mg 05/23/19 21:23 05/23/19 21:42 Reglan Injection - IVPUSH 05/23/19 21:24 10 mg ONCE ONE Administration Sodium Chloride 1,000 ml 05/23/19 21:23 05/23/19 21:42 Normal Saline - IV 05/23/19 21:24 1,000 ml ONCE ONE Administration Medical Decision Making - Medical Decision Making 05/23/19 21:53 Patient is a 19 year old female with past medical history of UTI, anemia, here with complaints of body ache, fever, generalized headache. Patient states she started having generalized body ache yesterday, then fever, sore throat, nausea , headache and neck pain started today. 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 Also states she was exposed to viral meningitis recently. States her dad is a nurse and had viral meningitis which was contracted by 3 other members of his household. Patient states she has had the meningitis vaccine, no flu shot. States had motrin about 8:15 pm. DDX: meningitis, strep throat, uti, labs, strep test IVF, tylenol IV, isolation CT head 05/24/19 01:02 Review noted to have multiple WBC on blood work, lactic is normal. patient seems dehydarted will continue on IVF Laboratory Tests 05/23/19 05/23/19 05/23/19 21:30 21:30 22:16 WBC 9.4 Hgb 9.0 L Hct 27.9 L Plt Count 290 PT with INR 13.60 H INR 1.15 H PTT (Actin FS) Potassium Cancelled Chloride Cancelled Carbon Dioxide Cancelled 05/23/19 22:16 WBC Hgb Hct Plt Count PT with INR INR PTT (Actin FS) 31.2 Potassium Chloride Carbon Dioxide 05/24/19 01:21 Patient Full Name: RADHA HUNTER Patient Accession No: [id number] Patient : 2000 Reason for Exam: ROSS; FEVER Referring Physician: Patient Name: DALE GARCIA THIS IS A PRELIMINARY REPORT FROM [facility] DATE OF SERVICE: 2019-05-24 00:23:41 IMAGES: 144 EXAM: HEAD CT WITHOUT CONTRAST HISTORY: Headache and fever COMPARISON: None. FINDINGS: The ventricular system is midline and nondilated. The sulcal pattern is normal for the patient's age. There is no bleed, mass, extra-axial fluid collection or mass effect. No skull fracture or skull lesion is identified. The visualized paranasal sinuses and mastoid air cells are clear. IMPRESSION: Normal exam One or more of the following dose reduction techniques were used: automated exposure control, adjustment of the mA and/or kV according to patient size, use of iterative reconstructive technique. THIS DOCUMENT HAS BEEN ELECTRONICALLY SIGNED Erik Melara MD 05/24/2019 01:18 RALE[place] Jo Please call [facility] [phone] ([phone]) with questions. INTERPRETING RADIOLOGIST: Hiren Melara MD Electronically Signed: May 24, 2019 01:19AM EDT 05/24/19 01:36 Patient feels improved, pain is resolved, afebrile. There are no acute finding on labs work, ct head neg. Patient encourage to return to the ED for worsening symptoms. 05/24/19 02:05 Selected Entries 05/24/19 05/24/19 00:09 01:38 Temperature 100.8 F H Pulse Rate [ 79 Left Radial] Respiratory 18 Rate Blood Pressure 104/57 L [Left Arm] I discussed the physical exam findings, ancillary test results and final diagnoses with the patient. I answered all of the patient's questions. The patient was satisfied with the care received and felt comfortable with the discharge plan and treatment plan. The Patient agrees to follow up with the primary care physician within 24-72 hours. Discharge - Discharge Information Problems reviewed: Yes Clinical Impression/Diagnosis: Viral illness, Sore throat Headache Qualifiers: Headache type: unspecified Headache chronicity pattern: unspecified pattern Intractability: not intractable Qualified Code(s): R51 - Headache Condition: Stable Disposition: HOME - Follow up/Referral Referrals: Shawn Johnson MD [Primary Care Provider] - - Patient Discharge Instructions Patient Printed Discharge Instructions: DI for Muscle Weakness Additional Instructions: Follow up with your pmd in 24 hours. If your symptoms are worsening despite taking tylenol and motrin you must return to the ED immediately. Return to the ED if the Headache return or is worsening, for fever, chills. - Post Discharge Activity Work/Back to School Note: Back to Work
[2019-05-23 22:36] LABS: EPI CELLS 14.1 /HPF (0-5/HPF); HYALINE CASTS 20 /lpf (0-8); URINE APPEARANCE CLOUDY; URINE BACTERIA 126.5 /hpf (NEGATIVE); URINE BILIRUBIN NEGATIVE (NEGATIVE); URINE COLOR YELLOW; URINE GLUCOSE (UA) NEGATIVE (NEGATIVE); URINE KETONE 2+ (NEGATIVE); URINE LEUK ESTERASE TRACE (NEGATIVE); URINE NITRITE NEGATIVE (NEGATIVE); URINE PROTEIN 1+ (NEGATIVE); URINE RBC 4 /hpf (0-4); URINE WBC 7 /hpf (0-5)
[2019-05-23 22:37] LABS: INR 1.15 (0.83-1.09); PROTHROMBIN TIME (PATIENT) 13.6 SEC (9.7-13.0)
[2019-05-23 22:52] LABS: YEAST NEGATIVE (NEGATIVE)
[2019-05-23 23:19] LABS: ALBUMIN 3.7 g/dl (3.4-5.0); BILIRUBIN,TOTAL 0.7 mg/dL (0.2-1); BLOOD UREA NITROGEN 11.4 mg/dL (7-18); CALCIUM 8.1 mg/dL (8.5-10.1); CREATININE 0.7 mg/dL (0.55-1.3); POTASSIUM 3.3 mmol/L (3.5-5.1); TOT PROT 7.2 g/dl (6.4-8.2)
[2019-05-24 00:09] VITALS: TEMP 100.8
[2019-05-24 01:38] VITALS: BP 104/57; PULSE 79
== END 2019-05-24 02:06 | disposition home or self-care (01) ==
LOC: JER 20:24
DX: B34.9 Viral infection, unspecified (principal); D64.9 Anemia, unspecified; Z87.440 Personal history of urinary (tract) infections
CPT/HCPCS: 36415; 70450-TC; 80053; 81003; 83605; 84703; 85025; 85610; 85730; 87040; 87070; 87086; 87186; 87804; 87880; 99282-25; J0131

== ENCOUNTER 2019-10-19 06:55 | Emergency (ER) | payer OTHER ==
[2019-10-19 07:21] VITALS: BMI 33.6
[2019-10-19] MEDS ORDERED: SODIUM CHLORIDE 1,000 ML IV STA (08:24)
--- NOTE | 2019-10-19 08:48 | PDOC ---
History of Present Illness - General History Source: Patient Exam Limitations: No Limitations - History of Present Illness Initial Comments: 10/19/19 08:43 Pt is a 19 y/o female who presents to the ED with complaint of vaginal bleeding in that started a few days ago. The patient states that she is about 5 weeks gestation and is with one elective termination. She states she is noticing dark blood when she wipes mostly. She admits to some abdominal discomfort as well. She saw her coal pipeline operator, Dr. Tamayo, who did a Beta HCG and was told it was 53 previously. She had a repeat beta HCG and states the value is still pending. She has not taken anything for her symptoms. She denies any past medical history of allergies to medications. She has not had an US as of yet. She has not had any dysuria or hematuria. <Kina Vegas - Last Filed: 10/19/19 11:52> <Chris Muro - Last Filed: 10/19/19 14:54> - General Chief Complaint: Vaginal Bleeding Stated Complaint: VAGINAL BLEEDING/7WKS PREGANANT Time Seen by Provider: 10/19/19 08:20 Past History - Past Medical History Anemia: Yes (IRON DEF) Cancer: No Cardiac Disorders: No CVA: No COPD: No CHF: No DVT: No GI Disorders: Yes (GERD) Disorders: Yes (ovarian cyst, UTIs (usually doesnt complete abx)) - Surgical History Cholecystectomy: Yes - Immunization History Immunization Up to Date: Yes - Psycho Social/Smoking Cessation Hx Smoking Status: No Smoking History: Never smoked Have you smoked in the past 12 months: No Number of Cigarettes Smoked Daily: 0 Information on smoking cessation initiated: No Hx Alcohol Use: No Drug/Substance Use Hx: No Substance Use Type: None <Kina Vegas - Last Filed: 10/19/19 11:52> <Chris Muro - Last Filed: 10/19/19 14:54> - Past Medical History Allergies/Adverse Reactions: Allergies Allergy/AdvReac Type Severity Reaction Status Date / Time No Known Allergies Allergy Verified 05/01/19 21:52 Home Medications: Ambulatory Orders Nitrofurantoin Monohyd/M-Cryst [Macrobid -] 100 mg PO BID #14 capsule 10/19/19 Review of Systems - Review of Systems Comments:: 10/19/19 08:46 - Review of Systems Able to Perform ROS?: Yes Constitutional: No: Fever, Chills, Loss of Appetite, Night Sweats, Weakness HEENTM: No: Eye Pain, Vision changes, Ear Pain, Throat Pain, Throat Swelling, Mouth Pain, Difficulty Swallowing Respiratory: No: Cough, Shortness of Breath, Wheezing, Sputum Production Cardiac (ROS): No: Chest Pain, Chest Tightness, Palpitations, Irregular Heart Beat, Edema ABD/GI: No: Nausea, Vomiting, Diarrhea; + lower abdominal cramping with : No Dysuria, No Hematuria, No Frequency, No Urgency, No Vaginal Discharge/ Pain; + vaginal spotting in Musculoskeletal: No: Muscle Pain, Back Pain, Joint Pain, Muscle Weakness, Neck Pain Integumentary: No: Lesions, Rash Neurological: No: Headache, Numbness, Tingling, Weakness, Speech Difficulties 10/19/19 08:47 <Kina Vegas - Last Filed: 10/19/19 11:52> *Physical Exam - Vital Signs Last Vital Signs Temp Pulse Resp BP Pulse Ox 98.6 F 72 18 116/61 100 10/19/19 07:18 10/19/19 07:18 10/19/19 07:18 10/19/19 07:18 10/19/19 07:18 - Physical Exam 10/19/19 08:48 - Physical Exam General Appearance: Nourished, Appropriately Dressed, No Distress HEENT: EOMI, Normal Voice, No Muffled/Hoarse voice, No Nasal Congestion, No Rhinorrhea, Hearing Grossly Normal Neck: Supple, No Lymphadenopathy (R), No Lymphadenopathy (L), No Rigidity, No Decreased range of motion Respiratory/Chest: Lungs Clear, Normal Breath Sounds. No Respiratory Distress, No Accessory Muscle Use Cardiovascular: Regular Rhythm, Regular Rate, S1, S2 Gastrointestinal/Abdominal: Normal Bowel Sounds, Soft. 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 The os is closed. No CMT. No masses appreciated in the suprapubic region or b/l adnexa Musculoskeletal: Normal Inspection. No Decreased Range of Motion Extremity: Normal Capillary Refill, Normal Inspection Integumentary: Normal Color, Dry. No Rash Neurologic: rehabilitation center manager II-XII NML intact, Fully Oriented, Alert, Normal Mood/Affect, Normal Response <Kina Vegas - Last Filed: 10/19/19 11:52> - Vital Signs Last Vital Signs Temp Pulse Resp BP Pulse Ox 98.0 F 76 18 112/56 L 100 10/19/19 12:03 10/19/19 12:03 10/19/19 12:03 10/19/19 12:03 10/19/19 07:18 <Chris Muro - Last Filed: 10/19/19 14:54> ED Treatment Course - LABORATORY CBC & Chemistry Diagram: 10/19/19 08:30 10/19/19 08:30 - RADIOLOGY Radiology Studies Ordered: Category Date Time Status TRANSVAGINAL US PREG [US] Stat Ultrasound 10/19/19 08:24 Ordered <Kina Vegas - Last Filed: 10/19/19 11:52> - LABORATORY CBC & Chemistry Diagram: 10/19/19 08:30 10/19/19 08:30 - ADDITIONAL ORDERS Additional order review: Laboratory Results 10/19/19 10/19/19 10/19/19 09:50 08:30 08:30 Sodium 138 Potassium 3.5 Chloride 106 Carbon Dioxide 25 Anion Gap 7 L BUN 10.0 Creatinine 0.8 Est GFR (CKD-EPI)AfAm 123.01 Est GFR (CKD-EPI)NonAf 106.13 Random Glucose 101 Calcium 9.0 Total Bilirubin 0.4 AST 20 ALT 30 Alkaline Phosphatase 88 Total Protein 8.2 Albumin 3.9 Beta HCG, Quant 48.5 Urine Color Yellow Urine Appearance Cloudy Urine pH 6.0 Ur Specific [place] 1.020 Urine Protein 1+ H Urine Glucose (UA) Negative Urine Ketones Negative Urine Blood 3+ H Urine Nitrite Negative Urine Bilirubin Negative Urine Urobilinogen 0.2 Ur Leukocyte Esterase Trace Urine WBC (Auto) 5.0 Urine RBC (Auto) 237.7 Urine Casts (Auto) 12.6 U Epithel Cells (Auto) 15.4 Urine Bacteria (Auto) 196.7 Blood Type A POSITIVE Antibody Screen Negative 10/19/19 08:30 RBC 3.93 MCV 76.4 L MCHC 32.7 RDW 18.7 H MPV 8.4 Neutrophils % 72.2 Lymphocytes % 18.4 D Monocytes % 7.5 Eosinophils % 1.5 D Basophils % 0.4 - Medications Given in the ED: ED Medications Discontinued Medications Generic Name Dose Route Start Last Admin Trade Name Anisha PRN Reason Stop Dose Admin Sodium Chloride 1,000 mls @ 1,000 mls/hr 10/19/19 08:24 10/19/19 08:35 Normal Saline - IV 10/19/19 09:23 1,000 mls/hr ASDIR STA Administration <Chris Muro - Last Filed: 10/19/19 14:54> Medical Decision Making - Medical Decision Making 10/19/19 08:49 Assessment: Pt is a 19 y/o female with vaginal bleeding in . Plan: -labs ordered including beta HCG and type and screen -TVUS ordered -NS bolus ordered -Will reassess 10/19/19 11:25 The patient has been made aware that her urinalysis is still pending. Her beta HCG was 48 in the ED today and was 53 with her coal pipeline operator last week. She has been made aware that slight difference in numbers can be lab discrepancy. She has been made aware that her US did not show any IUP but there was no evidence of ectopic. 10/19/19 11:52 The patient has been made aware that her urinalysis shows evidence of bacteria. We will treat her secondary to her being . She will follow-up with Dr. Tamayo for repeat beta-hCG within the next 2 days. If she is unable to follow-up with her [employer] CONSULTANT she will return to the ED for a repeat beta-hCG. She understands and agrees with this treatment plan and she is stable for discharge. <Kina Vegas - Last Filed: 10/19/19 11:52> - Medical Decision Making 10/19/19 14:54 I reviewed the case of the mid-level practitioner and was available for consultation while in the emergency department <Chris Muro - Last Filed: 10/19/19 14:54> Discharge - Discharge Information Problems reviewed: Yes <Kina Vegas - Last Filed: 10/19/19 11:52> <Chris Muro - Last Filed: 10/19/19 14:54> - Discharge Information Clinical Impression/Diagnosis: Vaginal bleeding in Condition: Stable Disposition: HOME - Additional Discharge Information Prescriptions: Nitrofurantoin Monohyd/M-Cryst [Macrobid -] 100 mg PO BID #14 capsule - Follow up/Referral Referrals: Shawn Johnson MD [Primary Care Provider] - Delia Tamayo MD [Staff Physician] - 2 Days - Patient Discharge Instructions Patient Printed Discharge Instructions: DI for Threatened Additional Instructions: You are having vaginal bleeding in . This could be because you are miscarrying the . You must follow-up with your [employer] CONSULTANT and have a repeat beta-hCG in 2 days. If you are unable to see your [employer] CONSULTANT, be sure to return to the emergency department for a repeat beta-hCG. You can take Tylenol for the pain. A prescription for Macrobid has been sent to your pharmacy secondary to having some bacteria in your urine. Get plenty of rest and drink plenty of fluids. - Post Discharge Activity Work/Back to School Note: Back to Work
[2019-10-19 09:11] LABS: BASO % 0.4 % (0-2.0); EOS % 1.5 % (0-4.5); HEMOGLOBIN 9.8 GM/dL (10.7-15.3); LYMPH % 18.4 % (8-40); MCHC 32.7 g/dl (32.0-36.0); MEAN CELL VOLUME 76.4 fl (80-96); MEAN PLT VOLUME 8.4 fl (7.5-11.1); MONO % 7.5 % (3.8-10.2); NEUT % 72.2 % (42.8-82.8); PLATELET COUNT 306 K/MM3 (134-434); RBC 3.93 M/mm3 (3.60-5.2); RDW 18.7 % (11.6-15.6); WHITE BLOOD COUNT 6.6 K/mm3 (4.0-10.0)
[2019-10-19 09:39] LABS: ALBUMIN 3.9 g/dl (3.4-5.0); BILIRUBIN,TOTAL 0.4 mg/dL (0.2-1); CREATININE 0.8 mg/dL (0.55-1.3); POTASSIUM 3.5 mmol/L (3.5-5.1); TOT PROT 8.2 g/dl (6.4-8.2)
[2019-10-19 11:29] LABS: URINE APPEARANCE CLOUDY; URINE BILIRUBIN NEGATIVE (NEGATIVE); URINE COLOR YELLOW; URINE GLUCOSE (UA) NEGATIVE (NEGATIVE); URINE KETONE NEGATIVE (NEGATIVE); URINE LEUK ESTERASE TRACE (NEGATIVE); URINE NITRITE NEGATIVE (NEGATIVE); URINE PROTEIN 1+ (NEGATIVE); URINE UROBILINOGEN 0.2 mg/dL (0.2-1.0)
[2019-10-19 11:54] LABS: EPI CELLS 15.4 /HPF (0-5/HPF); HYALINE CASTS 12.6 /lpf (0-8); URINE BACTERIA 196.7 /hpf (NEGATIVE); URINE RBC 237.7 /hpf (0-4)
[2019-10-19] MEDS ORDERED: ACETAMINOPHEN 500 MG TABLET (FP) PO ONE (11:58)
[2019-10-19] MEDS ORDERED: NITROFURANTOIN MACROCRYSTAL 50 MG CAPSULE (FP) PO SCH (12:00)
[2019-10-19 12:04] VITALS: BP 112/56; PULSE 76; TEMP 98
[2019-10-19] MEDS ORDERED: ACETAMINOPHEN 325 MG TABLET (FP) ONE (12:09)
[2019-10-19] MEDS ORDERED: NITROFURANTOIN MACROCRYSTAL 50 MG CAPSULE (FP) ONE (12:09)
== END 2019-10-19 12:14 | disposition home or self-care (01) ==
LOC: JER 06:55
PROC: 3E0337Z Introduction of Electrolytic and Water Balance Substance into Peripheral Vein, Percutaneous Approach (ICD-10-PCS; principal; 2019-10-19)
DX: O26.891 Other specified pregnancy related conditions, first trimester (principal); O20.8 Other hemorrhage in early pregnancy; R82.71 Bacteriuria; Z3A.01 Less than 8 weeks gestation of pregnancy
CPT/HCPCS: 36415; 76817-TC; 80053; 81003; 84702; 85025; 86850; 86900; 86901; 87077; 87086; 99284-25; J7030

== ENCOUNTER 2019-10-20 10:05 | Emergency (ER) | payer OTHER ==
[2019-10-20 10:09] VITALS: BP 126/64; PULSE 82; TEMP 98; BMI 33.5
[2019-10-20] MEDS ORDERED: KETOROLAC TROMETHAMINE 30 MG/1 ML VIAL IM ONE (10:46)
--- NOTE | 2019-10-20 10:55 | PDOC ---
History of Present Illness - General History Source: Patient Exam Limitations: Clinical Condition - History of Present Illness Initial Comments: 10/20/19 10:51 Patient with no significant past medical history G2, P0 at 5 weeks presented yesterday with vaginal spotting and abdominal cramping pain present today again with worsening vaginal bleeding and cramping lower abdominal pain which she feels bleeding feels like her regular menstrual period. Patient report taking Tylenol and using half pack for abdominal cramping pain without improvement. Denies nausea, vomiting, fevers. Patient being treated on Macrobid antibiotics for UTI diagnosed yesterday. Denies dizziness, palpitation , shortness of breath. <GeminiOlegario Fred - Last Filed: 10/20/19 11:32> <Radha Sahu - Last Filed: 10/20/19 12:16> - General Chief Complaint: Pain Stated Complaint: ABD PAIN Time Seen by Provider: 10/20/19 10:30 Past History - Past Medical History Anemia: Yes (IRON DEF) Cancer: No Cardiac Disorders: No CVA: No COPD: No CHF: No DVT: No GI Disorders: Yes (GERD) Disorders: Yes (ovarian cyst, UTIs (usually doesnt complete abx)) - Surgical History Cholecystectomy: Yes - Immunization History Immunization Up to Date: Yes - Psycho Social/Smoking Cessation Hx Smoking Status: No Smoking History: Never smoked Have you smoked in the past 12 months: No Number of Cigarettes Smoked Daily: 0 Information on smoking cessation initiated: No Hx Alcohol Use: No Drug/Substance Use Hx: No Substance Use Type: None <GeminiOlegario Fred - Last Filed: 10/20/19 11:32> <Radha Sahu - Last Filed: 10/20/19 12:16> - Past Medical History Allergies/Adverse Reactions: Allergies Allergy/AdvReac Type Severity Reaction Status Date / Time No Known Allergies Allergy Verified 10/20/19 10:09 Home Medications: Ambulatory Orders Nitrofurantoin Monohyd/M-Cryst [Macrobid -] 100 mg PO BID #14 capsule 10/19/19 Ibuprofen 800 mg PO Q8H PRN #20 tablet 10/20/19 Phenazopyridine HCl [Pyridium -] 100 mg PO PC #6 tablet 10/20/19 Review of Systems - Review of Systems Able to Perform ROS?: Yes Is the patient limited Kinyarwanda proficient: No Constitutional: No: Chills, Fever, Malaise HEENTM: No: Symptoms Reported, See HPI, Eye Pain, Blurred Vision, Tearing, Recent change in vision, Double Vision, Cataracts, Ear Pain, Ocular Prothesis, Ear Discharge, Nose Pain, Nose Congestion, Tinnitus, Nose Bleeding, Hearing Loss , Throat Pain, Throat Swelling, Mouth Pain, Dental Problems, Difficulty Swallowing, Mouth Swelling, Other Respiratory: No: Symptoms reported, See HPI, Cough, Orthopnea, Shortness of Breath, SOB with Exertion, SOB at Rest, Stridor, Wheezing, Productive cough, Hemoptysis, Other Cardiac (ROS): No: Symptoms Reported, See HPI, Chest Pain, Edema, Irregular Heart Rate, Lightheadedness, Palpitations, Syncope, Chest Tightness, Other ABD/GI: No: Symptoms Reported, See HPI, Nausea, Vomiting : Yes: Symptoms Reported, See HPI, Discharge, Frequency, Other (vaginal bleed) Musculoskeletal: No: Symptoms Reported Integumentary: No: Symptoms Reported All Other Systems: Reviewed and Negative <Olegario Singletary - Last Filed: 10/20/19 11:32> *Physical Exam - Vital Signs Last Vital Signs Temp Pulse Resp BP Pulse Ox 98 F 82 18 126/64 100 10/20/19 10:07 10/20/19 10:07 10/20/19 10:07 10/20/19 10:07 10/20/19 10:07 - Physical Exam General Appearance: Yes: Nourished, Appropriately Dressed. No: Apparent Distress HEENT: positive: Normal ENT Inspection Neck: positive: Supple Respiratory/Chest: positive: Lungs Clear, Normal Breath Sounds. negative: Respiratory Distress, Accessory Muscle Use Cardiovascular: positive: Regular Rhythm, Regular Rate Female Pelvic Exam: positive: normal external exam, cervical os closed, vaginal bleeding, other (small amount of dark blood in vaginal vault. no active vaginal bleeding). negative: adnexal tenderness Gastrointestinal/Abdominal: positive: Normal Bowel Sounds, Tender (mild suprapubic tenderness). negative: Distended, Guarding Musculoskeletal: positive: Normal Inspection. negative: Decreased Range of Motion Extremity: positive: Normal Capillary Refill, Normal Inspection Integumentary: positive: Normal Color Neurologic: positive: Fully Oriented, Alert, Normal Mood/Affect, Normal Response <Olegario Singletary - Last Filed: 10/20/19 11:32> - Vital Signs Last Vital Signs Temp Pulse Resp BP Pulse Ox 98 F 82 18 126/64 100 10/20/19 10:07 10/20/19 10:07 10/20/19 10:07 10/20/19 10:07 10/20/19 10:07 <Radha Sahu Edilson - Last Filed: 10/20/19 12:16> ED Treatment Course - Medications Given in the ED: ED Medications Discontinued Medications Generic Name Dose Route Start Last Admin Trade Name Freq PRN Reason Stop Dose Admin Ketorolac Tromethamine 30 mg 10/20/19 10:46 10/20/19 11:03 Toradol Injection - IM 10/20/19 10:47 30 mg ONCE ONE Administration <Radha Sahu Enedeliaquintin - Last Filed: 10/20/19 12:16> Medical Decision Making - Medical Decision Making 10/20/19 10:52 Patient with no significant past medical history G2, P0 at 5 weeks presented yesterday with vaginal spotting and abdominal cramping pain present today again with worsening vaginal bleeding and cramping lower abdominal pain which she feels bleeding feels like her regular menstrual period. Patient report taking Tylenol and using half pack for abdominal cramping pain without improvement. Denies nausea, vomiting, fevers. Patient being treated on Macrobid antibiotics for UTI diagnosed yesterday. Denies dizziness, palpitation , shortness of breath. Exam significant for small amount of blood in vaginal vault with small blood in cervical os. External cervical os open internal cervical os closed. No CMT. Patient symptoms likely spontaneous . Beta-hCG done yesterday 43 and transvaginal ultrasound shows no IUP or adnexal mass. Patient symptoms likely complete spontaneous . Toradol 30 mg IM ordered for pain. Blood work done yesterday was normal. Patient stable for discharge on Motrin as needed for pain with RESEARCH PROJECT COORDINATOR follow-up 10/20/19 11:32 Patient report improvement of pain with Toradol and request to be discharged. Patient stable for discharge on Motrin as needed for pain with RESEARCH PROJECT COORDINATOR follow-up <Olegario Singletary - Last Filed: 10/20/19 11:32> - Medical Decision Making The patient was seen and evaluated in conjunction with midlevel provider under my direct supervision, ancillary studies were reviewed. I agree with the plan as outlined with LORNA Singletary. HPI, workup/dispo as outlined. VS reviewed, wnl. prior note from yesterday reviewed, where TVUS did not show IUP. beta hcg was downtrending, in the 40s, at approx 5 weeks gestation based on LMP pain control anticipate discharge, driver followup, return precautions 10/20/19 12:13 <Radha Sahu - Last Filed: 10/20/19 12:16> Discharge - Discharge Information Problems reviewed: Yes - Admission No <Olegario Singletary - Last Filed: 10/20/19 11:32> <Radha Sahu - Last Filed: 10/20/19 12:16> - Discharge Information Clinical Impression/Diagnosis: Spon w/o complication Abdominal pain Qualifiers: Abdominal location: lower abdomen, unspecified Qualified Code(s): R10.30 - Lower abdominal pain, unspecified Condition: Stable Disposition: HOME - Additional Discharge Information Prescriptions: Ibuprofen 800 mg PO Q8H PRN #20 tablet PRN Reason: pain Phenazopyridine HCl [Pyridium -] 100 mg PO PC #6 tablet - Follow up/Referral Referrals: Shawn Johnson MD [Primary Care Provider] - - Patient Discharge Instructions Patient Printed Discharge Instructions: DI for Miscarriage Additional Instructions: Your bleeding is indication of spontaneous . Ultrasound done yesterday shows no so most likely will pass everything already. You can take prescribed Motrin as needed for pain. Follow-up with your RESEARCH PROJECT COORDINATOR - Post Discharge Activity Work/Back to School Note: Back to School
[2019-10-20] MEDS ORDERED: KETOROLAC TROMETHAMINE 30 MG/1 ML VIAL ONE (10:56)
== END 2019-10-20 11:30 | disposition home or self-care (01) ==
LOC: JER 10:05
PROC: 3E0233Z Introduction of Anti-inflammatory into Muscle, Percutaneous Approach (ICD-10-PCS; principal; 2019-10-20)
DX: O26.891 Other specified pregnancy related conditions, first trimester (principal); O03.9 Complete or unspecified spontaneous abortion without complication; Z3A.01 Less than 8 weeks gestation of pregnancy; D50.9 Iron deficiency anemia, unspecified; K21.9 Gastro-esophageal reflux disease without esophagitis; Z87.440 Personal history of urinary (tract) infections; Z87.42 Personal history of other diseases of the female genital tract
CPT/HCPCS: 99284-25

== ENCOUNTER 2019-10-21 18:48 | Emergency (ER) | payer OTHER ==
[2019-10-21 19:20] VITALS: BMI 33.5
--- NOTE | 2019-10-21 19:22 | PDOC ---
Rapid Medical Evaluation Time Seen by Provider: 10/21/19 19:18 Medical Evaluation: Allergies Allergy/AdvReac Type Severity Reaction Status Date / Time No Known Allergies Allergy Verified 10/21/19 19:20 Vital Signs Temp Pulse Resp BP Pulse Ox 85 18 116/69 100 10/21/19 19:16 10/21/19 19:16 10/21/19 19:16 10/21/19 19:16 10/21/19 19:20 I have performed a brief in-person evaluation of this patient. The patient presents with a chief complaint of: dx w/ spon AB w/ beta in the 40s yesterday w/ no IUP on US, here w/ continued abd pain. Taking motrin w/ no relief per pt. Minimal bleed now. No dysuria, n/v/f/c Pertinent physical exam findings:stable and well mae I have ordered the following:nothing The patient will proceed to the ED for further evaluation. Discharge Disposition - Diagnosis Spon w/o complication - Referrals - Patient Instructions - Post Discharge Activity
[2019-10-21 19:24] VITALS: TEMP 98.4
--- NOTE | 2019-10-21 19:31 | PDOC ---
*Physical Exam - Vital Signs Last Vital Signs Temp Pulse Resp BP Pulse Ox 98.4 F 85 18 116/69 100 10/21/19 19:16 10/21/19 19:16 10/21/19 19:16 10/21/19 19:16 10/21/19 19:16 Medical Decision Making - Medical Decision Making 10/21/19 19:31 Patient seen by the advanced practice provider under my supervision. Ancillary testing reviewed as necessary. I agree with plan as outlined by the advanced practice provider. Discharge - Discharge Information Problems reviewed: Yes Clinical Impression/Diagnosis: Spon w/o complication - Follow up/Referral Referrals: Shawn Johnson MD [Primary Care Provider] - - Patient Discharge Instructions - Post Discharge Activity
[2019-10-21] MEDS ORDERED: ACETAMINOPHEN 325 MG TABLET (FP) PO ONE (19:46)
[2019-10-21] MEDS ORDERED: ACETAMINOPHEN 325 MG TABLET (FP) ONE (19:56)
--- NOTE | 2019-10-21 20:02 | PDOC ---
History of Present Illness - General Chief Complaint: Pain Stated Complaint: ABD PAIN Time Seen by Provider: 10/21/19 19:18 History Source: Patient Exam Limitations: No Limitations Past History - Past Medical History Allergies/Adverse Reactions: Allergies Allergy/AdvReac Type Severity Reaction Status Date / Time No Known Allergies Allergy Verified 10/21/19 19:20 Home Medications: Ambulatory Orders Nitrofurantoin Monohyd/M-Cryst [Macrobid -] 100 mg PO BID #14 capsule 10/19/19 Phenazopyridine HCl [Pyridium -] 100 mg PO PC #6 tablet 10/20/19 Ondansetron [Zofran *Odt*] 4 mg SL BID PRN #8 od.tablet 10/21/19 Anemia: Yes (IRON DEF) Cancer: No Cardiac Disorders: No CVA: No COPD: No CHF: No DVT: No GI Disorders: Yes (GERD) Disorders: Yes (ovarian cyst, UTIs (usually doesnt complete abx)) - Surgical History Cholecystectomy: Yes - Reproductive History (#): 2 Para: 0 Therapeutic (s) & number: Yes (1) - Immunization History Immunization Up to Date: Yes - Psycho Social/Smoking Cessation Hx Smoking Status: No Smoking History: Never smoked Have you smoked in the past 12 months: No Number of Cigarettes Smoked Daily: 0 Hx Alcohol Use: No Drug/Substance Use Hx: No Substance Use Type: None *Physical Exam - Vital Signs Last Vital Signs Temp Pulse Resp BP Pulse Ox 98.4 F 85 18 116/69 100 10/21/19 19:16 10/21/19 19:16 10/21/19 19:16 10/21/19 19:16 10/21/19 19:16 - Physical Exam General Appearance: No: Apparent Distress Respiratory/Chest: positive: Lungs Clear, Normal Breath Sounds. negative: Respiratory Distress Cardiovascular: positive: Regular Rhythm, Regular Rate, S1, S2. negative: Murmur Gastrointestinal/Abdominal: positive: Tender (mild suprapubic region), Soft. negative: Distended, Guarding, Rebound Musculoskeletal: negative: CVA Tenderness Neurologic: positive: Alert ED Treatment Course - RADIOLOGY Radiology Studies Ordered: Category Date Time Status TRANSVAGINAL US PREG [US] Stat Ultrasound 10/21/19 19:46 Ordered Medical Decision Making - Medical Decision Making 19 y/o F hx of anemia, recently diagnosed with miscarriage 2 days ago at 5 weeks , Bhcg 48, returns for pelvic pain. Also still with vaginal bleeding. Also today with some NBNB emesis. Was seen yesterday as well with same complaints and got Toradol; states it helped but pain came back. Denies fever, sob, cp, dizziness, diarrhea, dysuria D/W Dr. Grady - will repeat Bhcg and get repeat pelvic US 10/21/19 20:01 Laboratory Last Values Beta HCG, Quant 16.3 mIU/ml 10/21/19 20:02 Bhcg trending down to 16 TVUS again shows no evidence of IUP Given Toradol for pain States she can f/u with her BUSINESS PERFORMANCE ADVISOR 10/21/19 21:15 Discharge - Discharge Information Problems reviewed: Yes Clinical Impression/Diagnosis: Spon w/o complication Condition: Stable Disposition: HOME - Admission No - Additional Discharge Information Prescriptions: Ondansetron [Zofran *Odt*] 4 mg SL BID PRN #8 od.tablet PRN Reason: Nausea Prescription Drug Monitoring Program (I-STOP) results: I-STOP not reviewed - Follow up/Referral Referrals: Shawn Johnson MD [Primary Care Provider] - - Patient Discharge Instructions Additional Instructions: Thank you for choosing [facility]. It was a pleasure taking care of you. You may take Motrin 600 mg every 6 hours by mouth as needed for mild to moderate pain. Take Motrin with food. Please be sure to follow-up with your BUSINESS PERFORMANCE ADVISOR for continued care Return to the Emergency Department if your symptoms worsen or persist or have other concerning symptoms. - Post Discharge Activity
[2019-10-21] MEDS ORDERED: ONDANSETRON *ODT* 4 MG TABLET SL ONE (20:31)
[2019-10-21] MEDS ORDERED: ONDANSETRON *ODT* 4 MG TABLET ONE (20:32)
[2019-10-21] MEDS ORDERED: KETOROLAC TROMETHAMINE 60 MG/2 ML VIAL IM ONE (21:14)
[2019-10-21] MEDS ORDERED: KETOROLAC TROMETHAMINE 60 MG/2 ML VIAL ONE (21:49)
[2019-10-21 22:24] VITALS: BP 111/72; PULSE 88
== END 2019-10-21 22:05 | disposition home or self-care (01) ==
LOC: JER 18:48
PROC: 3E0233Z Introduction of Anti-inflammatory into Muscle, Percutaneous Approach (ICD-10-PCS; principal; 2019-10-21)
DX: O03.9 Complete or unspecified spontaneous abortion without complication (principal)
CPT/HCPCS: 36415; 76817-TC; 84702; 99285-25; Q0162

== ENCOUNTER 2021-10-08 20:13 | Emergency (ER) | payer OTHER ==
[2021-10-08 20:31] VITALS: BP 121/75; TEMP 98.2; BMI 35.9
[2021-10-08] MEDS ORDERED: ACETAMINOPHEN 325 MG TABLET (FP) PO ONE (22:05)
[2021-10-08] MEDS ORDERED: ONDANSETRON *ODT* 4 MG TABLET SL ONE (22:05)
[2021-10-08] MEDS ORDERED: ACETAMINOPHEN 325 MG TABLET (FP) ONE (22:27)
[2021-10-08] MEDS ORDERED: ONDANSETRON 8 MG TABLET (FP) PO ONE (22:27)
[2021-10-08 22:59] LABS: BASO % 0.4 % (0-2.0); EOS % 0.9 % (0-4.5); HEMATOCRIT 32.3 % (32.4-45.2); HEMOGLOBIN 10.9 GM/dL (10.7-15.3); LYMPH % 10.4 % (8-40); MCH 29.2 pg (25.7-33.7); MCHC 33.7 g/dl (32.0-36.0); MEAN CELL VOLUME 86.6 fl (80-96); MEAN PLT VOLUME 7.9 fl (7.5-11.1); MONO % 7.7 % (3.8-10.2); NEUT % 80.6 % (42.8-82.8); PLATELET COUNT 267 10^3/uL (134-434); RBC 3.73 M/mm3 (3.60-5.2); RDW 13.7 % (11.6-15.6); WHITE BLOOD COUNT 9.7 K/mm3 (4.0-10.0)
[2021-10-08 23:29] VITALS: PULSE 85
== END 2021-10-08 23:31 | disposition home or self-care (01) ==
LOC: JER 20:13
DX: R53.1 Weakness (principal)
CPT/HCPCS: 36415; 85025; 99283-25

== ENCOUNTER 2021-12-04 10:56 | Emergency (ER) | payer SELFPAY ==
[2021-12-04 11:23] VITALS: BP 123/84; PULSE 69; TEMP 98.6; BMI 32.9
[2021-12-04] MEDS ORDERED: ACETAMINOPHEN 1000 MG/100 ML BAG IVPB ONE (13:26)
[2021-12-04] MEDS ORDERED: SODIUM CHLORIDE 1,000 ML IV STA (13:26)
[2021-12-04] MEDS ORDERED: ACETAMINOPHEN INJECTION 100 ML IVPB ONE (13:31)
[2021-12-04 14:25] LABS: BASO % 0.5 % (0-2.0); EOS % 1.3 % (0-4.5); HEMATOCRIT 34.3 % (32.4-45.2); HEMOGLOBIN 11.3 GM/dL (10.7-15.3); MCHC 32.9 g/dl (32.0-36.0); MEAN CELL VOLUME 85.3 fl (80-96); MEAN PLT VOLUME 8.5 fl (7.5-11.1); MONO % 8.5 % (3.8-10.2); NEUT % 65.7 % (42.8-82.8); PLATELET COUNT 335 10^3/uL (134-434); RBC 4.03 M/mm3 (3.60-5.2); RDW 14.2 % (11.6-15.6)
[2021-12-04 14:27] LABS: URINE APPEARANCE CLOUDY; URINE BILIRUBIN NEGATIVE (NEGATIVE); URINE COLOR YELLOW; URINE GLUCOSE (UA) NEGATIVE (NEGATIVE); URINE KETONE NEGATIVE (NEGATIVE); URINE LEUK ESTERASE NEGATIVE (NEGATIVE); URINE NITRITE NEGATIVE (NEGATIVE); URINE PROTEIN NEGATIVE (NEGATIVE); URINE UROBILINOGEN 0.2 mg/dL (0.2-1.0)
[2021-12-04 14:44] LABS: CALCIUM 8.9 mg/dL (8.5-10.1)
[2021-12-04 14:45] LABS: ALBUMIN 3.7 g/dl (3.4-5.0)
[2021-12-04 14:48] LABS: CREATININE 0.7 mg/dL (0.55-1.3)
[2021-12-04 14:49] LABS: TOT PROT 7.8 g/dl (6.4-8.2)
[2021-12-04 14:50] LABS: BILIRUBIN,TOTAL 0.7 mg/dL (0.2-1)
== END 2021-12-04 18:03 | disposition home or self-care (01) ==
LOC: JER 10:56
PROC: 3E0333Z Introduction of Anti-inflammatory into Peripheral Vein, Percutaneous Approach (ICD-10-PCS; principal; 2021-12-04)
PROC: 3E0337Z Introduction of Electrolytic and Water Balance Substance into Peripheral Vein, Percutaneous Approach (ICD-10-PCS; 2021-12-04)
DX: R10.31 Right lower quadrant pain (principal)
CPT/HCPCS: 36415; 74177-TC; 76856-TC; 80053; 81003; 83690; 84703; 85025; 99285-25; Q9967

== ENCOUNTER 2022-03-29 23:44 | Emergency (ER) | payer OTHER ==
[2022-03-29 23:53] VITALS: BP 117/72; PULSE 79; RESP 20; TEMP 98.1; BMI 34.0
[2022-03-30] MEDS ORDERED: ACETAMINOPHEN 500 MG TABLET (FP) PO ONE (00:38)
[2022-03-30] MEDS ORDERED: LORazepam 2 MG TABLET PO ONE (00:38)
[2022-03-30] MEDS ORDERED: LORazepam 0.5 MG TABLET ONE (01:04)
[2022-03-30] MEDS ORDERED: ACETAMINOPHEN 500 MG TABLET (FP) ONE (01:08)
== END 2022-03-30 02:46 | disposition home or self-care (01) ==
LOC: JER 23:44
DX: R07.9 Chest pain, unspecified (principal); F41.9 Anxiety disorder, unspecified; R51.9 Headache, unspecified
CPT/HCPCS: 71046-TC-FY; 93005; 93010; 99284-25

== ENCOUNTER 2023-01-23 20:29 | Emergency (ER) | payer OTHER ==
[2023-01-23 20:50] VITALS: BP 121/76; PULSE 73; RESP 18; TEMP 98.1; BMI 34.0
== END 2023-01-23 21:15 | disposition left against medical advice (07) ==
LOC: FER 20:29
DX: R51.9 Headache, unspecified (principal); R19.7 Diarrhea, unspecified; Q07.00 Arnold-Chiari syndrome without spina bifida or hydrocephalus
CPT/HCPCS: 99282-25

== ENCOUNTER 2024-01-24 20:47 | Emergency (ER) | payer OTHER ==
[2024-01-24 20:56] VITALS: BP 128/72; PULSE 104; RESP 18; TEMP 98.7; BMI 31.7
[2024-01-24] MEDS ORDERED: FAMOTIDINE 20 MG/50 ML IVPB 20 MG/50 ML MG IVPB ONE (21:41)
[2024-01-24] MEDS ORDERED: ACETAMINOPHEN INJECTION 100 ML IVPB ONE (21:41)
[2024-01-24] MEDS: ACETAMINOPHEN 1000 MG/100 ML BAG IVPB ONE (21:49)
[2024-01-24] MEDS: FAMOTIDINE 20 MG/50 ML IVPB 20 MG/50 ML MG IVPB ONE (21:49)
[2024-01-24 21:55] LABS: BASO % 0.4 % (0-2.0); EOS % 0.3 % (0-4.5); HEMATOCRIT 31.9 % (32.4-45.2); HEMOGLOBIN 10.4 GM/dL (10.7-15.3); LYMPH % 7.4 % (8-40); MCH 26.9 pg (25.7-33.7); MCHC 32.7 g/dl (32.0-36.0); MEAN CELL VOLUME 82.3 fl (80-96); NEUT % 84.9 % (42.8-82.8); PLATELET COUNT 315 10^3/uL (134-434); RBC 3.87 M/mm3 (3.60-5.2); RDW 15.2 % (11.6-15.6)
[2024-01-24 21:58] LABS: URINE APPEARANCE CLEAR; URINE BILIRUBIN NEGATIVE (NEGATIVE); URINE COLOR YELLOW; URINE GLUCOSE (UA) NEGATIVE (NEGATIVE); URINE KETONE TRACE (NEGATIVE); URINE LEUK ESTERASE NEGATIVE (NEGATIVE); URINE NITRITE NEGATIVE (NEGATIVE); URINE PROTEIN NEGATIVE (NEGATIVE); URINE UROBILINOGEN 0.2 mg/dL (0.2-1.0)
[2024-01-24 22:00] LABS: HCG,QUALITATIVE URINE Negative
[2024-01-24 22:14] LABS: POTASSIUM 3.5 mmol/L (3.5-5.1)
[2024-01-24 22:18] LABS: ALBUMIN 3.7 g/dl (3.4-5.0); BLOOD UREA NITROGEN 15.2 mg/dL (7-18); CALCIUM 9.1 mg/dL (8.5-10.1)
[2024-01-24 22:20] LABS: CREATININE 0.8 mg/dL (0.55-1.3)
[2024-01-24 22:22] LABS: BILIRUBIN,TOTAL 0.7 mg/dL (0.2-1)
[2024-01-25 00:03] LABS: THROAT:GRP A STREP DETECTED (NOTDETECTED)
[2024-01-25] MEDS ORDERED: PENICILLIN G BENZATHINE 1,200,000 UNIT/2 ML PFS IM ONE (01:06)
[2024-01-25] MEDS: PENICILLIN G BENZATHINE 1,200,000 UNIT/2 ML PFS IM ONE (01:13)
== END 2024-01-25 03:02 | disposition home or self-care (01) ==
LOC: JER 20:47
PROC: 3E033GC Introduction of Other Therapeutic Substance into Peripheral Vein, Percutaneous Approach (ICD-10-PCS; principal; 2024-01-24)
PROC: 3E033NZ Introduction of Analgesics, Hypnotics, Sedatives into Peripheral Vein, Percutaneous Approach (ICD-10-PCS; 2024-01-24)
PROC: 3E02329 Introduction of Other Anti-infective into Muscle, Percutaneous Approach (ICD-10-PCS; 2024-01-25)
DX: J03.00 Acute streptococcal tonsillitis, unspecified (principal); R10.32 Left lower quadrant pain; R00.0 Tachycardia, unspecified; M54.50 Low back pain, unspecified; R11.0 Nausea; R68.83 Chills (without fever); M79.10 Myalgia, unspecified site; Z20.822 Contact with and (suspected) exposure to COVID-19
CPT/HCPCS: 0241U-QW; 36415; 74177-TC; 76830-TC; 80053; 81003; 83690; 84703; 85025; 87086; 87651; 99285-25; J0131; Q9967

== ENCOUNTER 2024-04-04 11:11 | Emergency (ER) | payer OTHER ==
[2024-04-04 11:29] VITALS: BP 118/77; PULSE 109; RESP 20; TEMP 100.2; BMI 32.5
[2024-04-04] MEDS ORDERED: KETOROLAC TROMETHAMINE 30 MG/1 ML VIAL ONE (12:21)
[2024-04-04] MEDS ORDERED: ACETAMINOPHEN 500 MG TABLET (FP) ONE (12:21)
[2024-04-04] MEDS: ACETAMINOPHEN 500 MG TABLET (FP) PO ONE (12:23)
[2024-04-04] MEDS: KETOROLAC TROMETHAMINE 30 MG/1 ML VIAL IM ONE (12:23)
[2024-04-04 12:36] LABS: EPI CELLS 17 /uL (0-25.1); HCG,QUALITATIVE URINE Negative; HYALINE CASTS 0 /uL (0-3.1); PH,URINE 6.5 (5.0-8.0); URINE APPEARANCE CLEAR; URINE BACTERIA 55 /uL (0-1359); URINE BILIRUBIN NEGATIVE (NEGATIVE); URINE COLOR YELLOW; URINE GLUCOSE (UA) NEGATIVE (NEGATIVE); URINE KETONE NEGATIVE (NEGATIVE); URINE LEUK ESTERASE NEGATIVE (NEGATIVE); URINE NITRITE NEGATIVE (NEGATIVE); URINE PROTEIN NEGATIVE (NEGATIVE); URINE RBC 63 /uL (0-23.9); URINE UROBILINOGEN 0.2 mg/dL (0.2-1.0); URINE WBC 14 /uL (0-25.8)
[2024-04-04 13:01] LABS: THROAT:GRP A STREP NOT DETECTED (NOTDETECTED)
== END 2024-04-04 13:27 | disposition home or self-care (01) ==
LOC: JER 11:11 → JERFT 11:11
PROC: 3E0233Z Introduction of Anti-inflammatory into Muscle, Percutaneous Approach (ICD-10-PCS; principal; 2024-04-04)
DX: J02.9 Acute pharyngitis, unspecified (principal); M79.10 Myalgia, unspecified site; R68.83 Chills (without fever); U07.1 COVID-19
CPT/HCPCS: 0241U-QW; 81003; 84703; 87651; 99284-25

== ENCOUNTER 2024-06-13 20:15 | Emergency (ER) | payer OTHER ==
[2024-06-13 20:23] VITALS: BP 115/58; PULSE 78; RESP 18; TEMP 98.6; BMI 31.9
== END 2024-06-13 23:12 | disposition home or self-care (01) ==
LOC: JERFT 20:15
DX: S96.911A Strain of unspecified muscle and tendon at ankle and foot level, right foot, initial encounter (principal); X58.XXXA Exposure to other specified factors, initial encounter
CPT/HCPCS: 73610-TC-RT-FY; 73630-TC-RT-FY; 93971-TC; 99284-25